=== PATIENT | male | born 1955 | race Caucasian/White ===

== ENCOUNTER → 2016-09-20 | Outpatient (CLI) | payer OTHER ==
[~2016-09-20] MED LIST: LISI-729 PO; LSN25 PO; MELO15TA4 PO; MULT-506 PO; OMEG10007 PO; PRED1SUS3 OPR; SIMV40TA2 PO
== END | disposition home or self-care (01) ==
LOC: C.LABPVFM 09:46
PROVIDERS: ATTEND Urology
DX: N40.1 Benign prostatic hyperplasia with lower urinary tract symptoms (principal)

== ENCOUNTER → 2017-02-23 | Outpatient (CLI) | payer OTHER ==
[2017-02-23 10:12] LABS: BLOOD UREA NITROGEN 17 mg/dl (7-18); BUN/CREATININE RATIO 16.9 (10-20); CARBON DIOXIDE 25 mmol/L (21-32); CHLORIDE 106 mmol/L (98-107); CHOLESTEROL 171 mg/dl (0-200); GLUCOSE 91 mg/dl (70-99); POTASSIUM 4.1 mmol/L (3.5-5.1); SODIUM 142 mmol/L (136-145); TRIGLYCERIDES 56 mg/dl (0-150); VERY LOW DENSITY LIPOPROT CALC 11 mg/dl
[2017-02-23 10:15] LABS: CALCIUM 9.2 mg/dl (8.5-10.1); CHOLESTEROL/HDL RATIO 2.6; HDL CHOLESTEROL 67 mg/dl; LDL CHOLESTEROL CALCULATED 93 mg/dl
== END | disposition home or self-care (01) ==
LOC: C.LAB 07:20
PROVIDERS: ATTEND Family Medicine
DX: E78.5 Hyperlipidemia, unspecified (principal); I42.9 Cardiomyopathy, unspecified

== ENCOUNTER 2017-02-26 16:19 | Emergency (ER) | payer OTHER ==
[~2017-02-26] VITALS: Ht 175.3 cm; Wt 88.7 kg
[~2017-02-26 16:19] MED LIST changes: -LISI-729 PO; -MELO15TA4 PO
[2017-02-26 16:25] VITALS: TEMP 36.8; Ht 175.3 cm; Wt 88.7 kg
[2017-02-26] MEDS ORDERED: LISI-729 PO (16:41)
[2017-02-26] MEDS ORDERED: MELO15TA4 PO (16:42)
--- NOTE | 2017-02-26 17:45 | DIAGNOSTIC IMAGING REPORT ---
RIGHT SHOULDER MIN 2 VIEWS ROUTINE CLINICAL HISTORY: Right shoulder pain following injury. COMPARISON: None FINDINGS: Alignment of the right shoulder is anatomic. There is no acute fracture. There is moderate AC joint arthrosis. There is mild glenohumeral joint arthrosis. IMPRESSION: 1. No acute fracture or dislocation of the right shoulder. 2. 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 Electronically signed by: Dread Brewster M.D. 02/26/2017 5:43 PM Dictated Date/Time: 02/26/2017 5:43 PM
[2017-02-26 18:10] VITALS: BP 121/72; PULSE 54; O2SAT 97
--- NOTE | 2017-02-28 08:00 | EMERGENCY ROOM VISIT NOTE ---
ED Visit Note First contact with patient: 16:29 Chief Complaint: Right shoulder pain. History of Present Illness: Mr. Blake is a 61-year-old white male who ambulates into the ED complaining of right shoulder pain. Historically patient denies any previous significant injuries or surgeries to the right shoulder. Patient reports approximately 3 hours ago he was descending a steep set of steps out of his attic. He reports while descending the steps his right shoulder gave out and he felt a popping sensation. Since that time he reports he has been having global pain in the right shoulder and he has not been able to abduct or extend at the glenoid humeral joint. Currently he describes his pain as an achy sensation. At rest he rates his discomfort 2/10 and when he attempts to move his shoulder it becomes 5/10. He has not taken any medications for pain prior to arrival at the hospital. He denies any associated symptoms including neck pain, clavicle pain, AC joint joint pain, mid to distal humerus pain, elbow pain, forearm pain, wrist pain, extremity weakness/numbness/tingling. Review of Systems: As noted above in history of present illness. 5 body systems were reviewed and found to be negative as noted above. Past Medical History: Arthritis, unspecified heart disease, dyslipidemia, hypertension, status post unspecified back and knee surgeries, appendectomy, and unspecified hernia repair. Current Medications: Medications Dose Route/Sig Max Daily Dose Days Date Category Mobic (Meloxicam) 15 Mg Tab 15 Mg PO DAILY 02/26/17 Reported Zestril (Lisinopril) 5 Mg Tab 2.5 Mg PO QAM 02/26/17 Reported Multivitamin (Multivitamins) Tab 1 Tab PO QAM 08/12/11 Reported [place]-3 (Fish Oil) 1 Ea Cap 1 Cap PO QPM 08/12/11 Reported Zocor (Simvastatin) 40 Mg Tab 40 Mg PO QPM 08/12/11 Reported Allergies to Medications: Tramadol. Social History: Patient is currently employed; he lives with his and feels safe in his home environment; he denies tobacco use; he admits to social alcohol use. Physical Examination: Vital Signs: Date Time Temp Pulse Resp B/P (MAP) Pulse Ox O2 Delivery O2 Flow Rate FiO2 02/26/17 18:10 54 6 121/72 97 Room Air 02/26/17 16:25 36.8 73 16 99/71 96 Room Air GENERAL: 61-year-old male in mild distress due to pain, nontoxic-appearing, afebrile and hemodynamically stable. Patient ambulates into the ED holding his right arm at the wrist and across to his abdomen with his right shoulder drooping lower than his left. NEUROLOGICAL: Awake, alert and oriented to person, place and time. Answering questions appropriately and following commands. Normal gait. Good hand eye coordination. SKIN: Warm, dry and pink. No soft tissue eruptions or trauma noted. BACK: No tenderness over the bony cervical and thoracic spines. RIGHT UPPER EXTREMITY: At the shoulder the humeral head appears inferior to its normal anatomical position. I do not appreciate any tenderness over the clavicle, acromioclavicular joint, scapula or humeral head. I do not appreciate any muscle tenderness of the rotator cuff muscles, trapezius muscle, pectoralis muscles, deltoid muscle and biceps muscle. Patient was not able to flex or abduct his shoulder due to discomfort. He was able to extend, abduct, internal and external rotation and when I extend and abduct his arm forearm he did have hard as I know extension and flexion. With the shoulder stabilize she had full range of motion and muscle strength in flexion and extension of the elbow, pronation and supination of the forearm, flexion, extension and radial and ulnar deviation of the wrist. Distal pulses were intact. Capillary refill is brisk. He good sensations to light touch through all dermatomes of the hand. ED Course: Patient is assessed as noted above. Patient's medications list was reviewed. Patient was offered pain medication and refused. Right Shoulder X-Rays: Were reviewed by myself and the radiologist showing no acute fractures or dislocations. Radiologist notes mild to moderate osteoarthritis of the right shoulder. Patient was placed in a shoulder immobilizer. Patient was educated about today's findings and instructed on his treatment plan ; he verbalizes understanding and agreement with this plan. Clinical Impression: Right shoulder pain. Decision-Making: Initially my differential diagnosis I considered dislocation, subluxation, acromioclavicular joint separation, rotator cuff injury, bicipital tendon injury, muscle strain and other causes. Disposition: Patient discharged home in stable condition accompanied by his ; prior to departure he was reassessed and subjectively reported he was feeling the same and rated his discomfort 2/10. Plan: Patient was encouraged to continue his current medications as prescribed by his primary care providers. Patient was encouraged use ice on the area 4-5 times a day for 20-30 minutes for pain and/or swelling. Patient was encouraged to use the immobilizer for 3-6 days or until pain free. Patient was encouraged to follow-up with family physician if no better in 4-5 days and possible referral to orthopedics. Patient was encouraged return the ED for worsening/uncontrolled pain, arm weakness/numbness/tingling or any new/concerning symptoms.
== END 2017-02-26 18:23 | disposition home or self-care (01) ==
LOC: C.EDB 16:20 → C.EDD 18:23
DX: M25.511 Pain in right shoulder (principal); M19.90 Unspecified osteoarthritis, unspecified site; I51.9 Heart disease, unspecified; E78.5 Hyperlipidemia, unspecified; I10 Essential (primary) hypertension

== ENCOUNTER → 2017-03-27 | Outpatient (CLI) | payer OTHER ==
[~2017-03-27] MED LIST changes: +LISI-729 PO; -LSN25 PO; +MELO15TA4 PO; -PRED1SUS3 OPR
== END | disposition home or self-care (01) ==
LOC: C.RDSM 12:01
PROVIDERS: ATTEND Physician Assistant
DX: S49.90XA Unspecified injury of shoulder and upper arm, unspecified arm, initial encounter (principal); X58.XXXA Exposure to other specified factors, initial encounter; M75.101 Unspecified rotator cuff tear or rupture of right shoulder, not specified as traumatic; M25.511 Pain in right shoulder

== ENCOUNTER → 2017-09-29 | Outpatient (CLI) | payer OTHER | END | disposition home or self-care (01) | LOC: C.LABPVFM 10:08 | PROVIDERS: ATTEND Urology | DX: N40.1 Benign prostatic hyperplasia with lower urinary tract symptoms (principal); R33.9 Retention of urine, unspecified ==

== ENCOUNTER 2017-12-22 22:45 | Emergency (ER) | payer OTHER ==
[~2017-12-22] VITALS: Ht 175.3 cm; Wt 89.1 kg
[~2017-12-22 22:45] MED LIST changes: +MELO-84 PO; -MELO15TA4 PO
[2017-12-22 22:57] VITALS: TEMP 36.6; Ht 175.3 cm; Wt 89.1 kg
[2017-12-22] MEDS ORDERED: CEPHALEXIN 500MG HOME PACK 1 EA BTL PO ONE (23:30)
[2017-12-22] MEDS ORDERED: CEPHALEXIN MONOHYDRATE 250 MG CAP PO ONE (23:30)
[2017-12-22] MEDS ORDERED: CEPH500C PO (23:41)
--- NOTE | 2017-12-22 23:47 | EMERGENCY ROOM VISIT NOTE ---
History Report prepared by Carla: Natasha Landis Under the Supervision of: Dr. Chanel Alcantar M.D. First contact with patient: 23:14 Chief Complaint: SWELLING TO EXTREMITY Stated Complaint: CELLULITIS History of Present Illness The patient is a 62 year old male who presents to the Emergency Room with complaints of sudden swelling to extremity starting a few hours ago. The patient states that he has been remodeling his house and has hand some splinters or cuts to his fingers. He states that he doesn't remember hitting his left elbow. He reports that he has had cellulitis in the past in his leg and thought that his arm looked similar to what his leg did. The patient denies his elbow being sore and having a fever. He notes a history of a left bundle branch block and rotator cuff surgery. Source of History: patient Onset: a few hours ago Position: elbow (left) Quality: other (swelling) Timing: other (sudden) Associated Symptoms: No fevers Note: The patient denies pain in his elbow. Review of Systems See HPI for pertinent positives & negatives. A total of 6 systems reviewed and were otherwise negative. Past Medical & Surgical Medical Problems: (1) Heart disease (2) Hx of left bundle branch block Surgical Problems: (1) History of back surgery (2) Hx of anterior cruciate ligament surgery (3) Hx of hernia repair (4) Hx of rotator cuff surgery Family History Patient reports no known family medical history. Social History Smoking Status: Former Smoker Alcohol Use: occasionally Drug Use: none Marital Status: Housing Status: lives with significant other Occupation Status: employed Current/Historical Medications Scheduled Cephalexin Monohydrate (Keflex), 500 MG PO QID Fish Oil ([place]-3), 1 CAP PO QPM Lisinopril (Zestril), 2.5 MG PO QAM Meloxicam (Mobic), 15 MG PO DAILY Multivitamin (Multivitamin), 1 TAB PO QAM Simvastatin (Zocor), 40 MG PO QPM Allergies Coded Allergies: Tramadol (Unverified Adverse Reaction, Severe, VOMITING, 12/22/17) Physical Exam Vital Signs Date Time Temp Pulse Resp B/P (MAP) Pulse Ox O2 Delivery O2 Flow Rate FiO2 12/22/17 23:55 60 20 125/76 96 12/22/17 22:57 36.6 62 18 125/74 96 Room Air Physical Exam Vital signs reviewed. General: Well-appearing, in no significant distress. Musculoskeletal: Atraumatic, no peripheral edema. Neurologic: Patient awake alert and oriented x 3 Skin: Warm, dry, no rash. Little erythema/ecchymosis to the left forearm proximally. Medical Decision & Procedures Medications Administered Medications (Trade) Dose Ordered Sig/David Route Start Time Stop Time Status Last Admin Dose Admin Cephalexin Monohydrate (Keflex 500MG Home Pack) 1 homepack NOW ONCE PO 12/22/17 23:30 12/22/17 23:39 DC 12/22/17 23:49 1 HOMEPACK Cephalexin Monohydrate (Keflex Cap) 500 mg NOW ONCE PO 12/22/17 23:30 12/22/17 23:39 DC 12/22/17 23:49 500 MG ED Course 2318: Past medical records reviewed. The patient was evaluated in room B2. A complete history and physical examination was performed. I discussed findings with him. He verbalized agreement of the treatment plan. The patient was discharged home. 2330: Ordered Keflex Cap 500 mg PO, Cephalexin Monohydrate 1 homepack PO. Medical Decision Differential diagnosis: Etiologies such as cellulitis, abscess, MRSA infection, DVT, necrotizing fasciitis, dermatitis, drug eruption, as well as others were entertained. This patient was evaluated and appeared to be in no significant distress. Physical examination reveals an area of erythema/ecchymosis to the left upper extremity. It does not cinthya however there is an area of questionable warmth near the elbow. The patient is remodeling his home. He has had cellulitis in the past with hospitalization subsequently. The patient likely suffering from a healing ecchymotic area however he will be placed on Keflex 500 mg 4 times a day for 7 days. Patient was advised of my findings. He will follow-up with his PCP this week and return to the ER for worsening symptoms or any medical concerns. Medication Reconcilliation Current Medication List: was personally reviewed by me Blood Pressure Screening Patient's blood pressure: Normal blood pressure Blood pressure disposition: Did not require urgent referral Impression Primary Impression: Cellulitis of left arm Scribe Attestation The scribe's documentation has been prepared under my direction and personally reviewed by me in its entirety. I confirm that the note above accurately reflects all work, treatment, procedures, and medical decision making performed by me. Departure Information Dispostion Home / Self-Care Prescriptions Cephalexin Monohydrate (Keflex) 500 Mg Cap 500 MG PO QID, #28 CAP Prov: Chanel Alcantar M.D. 12/22/17 Referrals Shauna Correa M.D. (PCP) Forms HOME CARE DOCUMENTATION FORM, IMPORTANT VISIT INFORMATION, WORK / SCHOOL INSTRUCTIONS Patient Instructions My [facility] Additional Instructions Diagnosis: Cellulitis of the left forearm Keflex 500 mg 4 times daily for 7 days. Wash with warm soap and water. Follow-up with your primary care physician for reevaluation this week. Return to the emergency department if erythema spreads beyond the demarcated line.
[2017-12-22 23:55] VITALS: BP 125/76; PULSE 60; O2SAT 96
== END 2017-12-22 23:55 | disposition home or self-care (01) ==
LOC: C.EDB 22:46
DX: L03.114 Cellulitis of left upper limb (principal); I51.9 Heart disease, unspecified; Z87.891 Personal history of nicotine dependence; Z79.899 Other long term (current) drug therapy; Z88.5 Allergy status to narcotic agent

== ENCOUNTER → 2018-01-29 | Outpatient (CLI) | payer OTHER ==
[~2018-01-29] MED LIST changes: +CEPH500C PO
[2018-01-29 13:26] LABS: BLOOD UREA NITROGEN 14 mg/dl (7-18); CALCIUM 8.8 mg/dl (8.5-10.1); CARBON DIOXIDE 24 mmol/L (21-32); CHOLESTEROL 164 mg/dl (0-200); CREATININE 0.93 mg/dl (0.60-1.40); GLUCOSE 91 mg/dl (70-99); LDL CHOLESTEROL CALCULATED 97 mg/dl; POTASSIUM 4.3 mmol/L (3.5-5.1); SODIUM 137 mmol/L (136-145)
== END | disposition home or self-care (01) ==
LOC: C.LABPVFM 08:15
PROVIDERS: ATTEND Family Medicine
DX: E78.5 Hyperlipidemia, unspecified (principal); I42.9 Cardiomyopathy, unspecified

== ENCOUNTER 2021-07-13 01:12 | Inpatient (IN) ==
[2021-07-13] MEDS ORDERED: SODIUM CHLORIDE 0.9% 1000ML 1,000 ML IV SCH ×2 (02:00→06:32)
[2021-07-13 02:08] LABS: Basophils # (auto) 0.02 K/uL (0-0.2); Basophils % (auto) 0.3 %; Eosinophils # (auto) 0.23 K/uL (0-0.5); Eosinophils % (auto) 2.9 %; Hematocrit (blood only) 43.3 % (42-52); Hemoglobin 14.5 g/dL (14.0-18.0); Immature Granulocytes # (auto) 0.02 K/uL (0.00-0.02); Immature Granulocytes % (auto) 0.3 %; Lymphocytes # (auto) 2.46 K/uL (1.2-3.4); Lymphocytes % (auto) 31.2 %; Mean Corpuscular Hemoglobin 32.3 pg (25-34); Mean Corpuscular Hgb Conc 33.5 g/dL (32-36); Mean Corpuscular Volume 96.4 fL (80-100); Monocytes # (auto) 0.94 K/uL (0.11-0.59); Monocytes % (auto) 11.9 %; Neutrophils # (auto) 4.22 K/uL (1.4-6.5); Neutrophils % (auto) 53.4 %; Platelet Count 177 K/uL (130-400); RDW Coefficient of Variation 14.2 % (11.5-14.5); RDW Standard Deviation 50.2 fL (36.4-46.3); Red Blood Count 4.49 M/uL (4.7-6.1); White Blood Count 7.89 K/uL (4.8-10.8)
[2021-07-13 02:16] LABS: Alanine Aminotransferase 20 U/L (12-78); Albumin Level 3.8 gm/dl (3.4-5.0); Aspartate Aminotransferase 16 U/L (15-37); BUN Creatinine Ratio 20.3 (10-20); Blood Urea Nitrogen 20 mg/dl (7-18); Calcium 9.2 mg/dl (8.5-10.1); Carbon Dioxide 27 mmol/L (21-32); Chloride 107 mmol/L (98-107); Creatinine Clr Calc Pharmacy 78.4 ml/min; Est GFR (African American) 91.4 ml/min; Est GFR (Non-African American) 78.9 ml/min; Glucose 100 mg/dl (70-99); Lipase 155 U/L (73-393); Magnesium 2.1 mg/dl (1.8-2.4); Potassium 4.3 mmol/L (3.5-5.1); Sodium 137 mmol/L (136-145)
[2021-07-13 02:26] LABS: Albumin Globulin Ratio 1.1 (0.9-2); Alkaline Phosphatase 41 U/L (45-117); Bilirubin,Total 0.6 mg/dl (0.2-1); Globulin 3.5 gm/dl (2.5-4.0); Total Protein 7.3 gm/dl (6.4-8.2); Troponin I < 0.015 ng/ml (0-0.045)
[2021-07-13 02:29] LABS: D Dimer 240 ug/L FEU (0-500); INR 0.9 (0.9-1.1); Partial Thromboplastin Ratio 0.9; Prothrombin Time 9.6 Seconds (9.0-12.0)
[2021-07-13 03:01] LABS: Appearance Urine Clear (Clear); Bilirubin Urine Negative (Negative); Blood Urine Negative (Negative); Color Urine Yellow; Glucose Urine UA Negative (Negative); Ketones Urine Negative (Negative); Leukocyte Esterase Urine Negative (Negative); Nitrite Urine Negative (Negative); Protein Urine Negative (Negative); Specific Gravity Urine 1.022 (1.000-1.030); Urobilinogen Urine Negative (Negative); pH Urine 5.5 (4.5-7.5)
[2021-07-13] MEDS ORDERED: POLYETHYLENE (MIRALAX) 17 GM PACK PO PRN (06:32)
[2021-07-13] MEDS ORDERED: ACETAMINOPHEN 325 MG TAB PO PRN (06:32)
--- NOTE | 2021-07-13 07:22 | Emergency Department Note ---
History of Present Illness General Chief complaint: Cardiac Assessment Stated complaint: PASSED OUT ON PLANE,HX OF HEART PROBLEMS,CHEST DIS Time Seen by Provider: 07/13/21 01:47 History of Present Illness Maximum Pain Intensity: 2 This is a 66-year-old male presenting to the emergency department for evaluation of syncopal episode that occurred during a flight from [facility]. The patient was on the airplane seated next to his when he had profound diaphoresis, became pale, and then had a syncopal episode. The patient was obscured to the back of the airplane where a passenger medic and nurse attended to the patient. The patient was unresponsive for some time and there was consideration being given to diversion with the chief pilot speaking to ground medical staff. The patient was placed on oxygen and after several minutes of not being able to obtain a blood pressure, the patient did begin to come to. The patient does have a history of vagal syncope, but the states this was much more profound than previous episodes. The patient felt well upon landing, and rather than looking for immediate medical care elected to get on his flight back to [place]. The patient just landed and came immediately to this facility for evaluation. The patient is reportedly usually healthy, and they were in [place] to go hiking. The patient does ride bicycle quite often. He does have a history of right bundle branch block, and there was previous consideration for possible pacer. The patient was having some chest discomfort earlier, but this seems to have improved. He rates his current discomfort a 2/10. He is not had fevers or chills. Home Medications Medication Instructions Recorded Confirmed Type lisinopril 2.5 mg tablet 2.5 mg PO DAILY 11/19/20 07/13/21 History simvastatin 40 mg tablet 40 mg PO QPM 11/19/20 07/13/21 History docusate sodium 100 mg capsule 100 mg PO DAILY 07/13/21 07/13/21 History (Stool Softener) multivitamin 1 tab PO DAILY 07/13/21 07/13/21 History omega [id number] oil 1,200 mg 1 cap PO DAILY 07/13/21 07/13/21 History (144 mg-216 mg) capsule (Fish Oil) Allergies Allergy/AdvReac Type Severity Reaction Status Date / Time tramadol AdvReac Severe VOMITING Verified 07/13/21 02:16 Past Med/Surg History Medical History Cardiomyopathy Cellulitis Diarrhea Dyslipidemia Hx of left bundle branch block Insomnia Knee pain Nasal polyps Skin tag Sleep disturbances Surgical History History of back surgery History of laparoscopic appendectomy Hx of anterior cruciate ligament surgery Hx of cataract surgery Hx of hernia repair Hx of rotator cuff surgery Family History Other Epilepsy Social History Smoking Status: Former smoker Tobacco Type: Cigarettes Hx Alcohol Use: Yes Alcohol type: hard liquor Hx Substance Use: No Preferred Language: Estonian Communication Ability: Effective Manager Medical Writing Required: No Beliefs That Will Affect Care: Jain marital status: Current Living Situation: Spouse How many Children do You have: 1 Other Information That Helps Us Care for You: No Feels Safe at Home: Yes Safety Concerns: Feels Safe At This Time Assistive Devices: Glasses Review of Systems A total of 10 systems reviewed and were otherwise negative Physical Exam Vital Signs Vital Signs - 24 hr 07/13/21 01:21 07/13/21 01:38 07/13/21 02:00 Temperature 36.1 C L Temperature Source Temporal Artery Scan Pulse Rate 57 L 49 L 50 L Pulse Rate [Finger] Pulse Rhythm Respiratory Rate 19 14 13 Respiratory Effort / Characteristics Non-Labored Respiratory Depth Normal Respiratory Pattern Regular Blood Pressure 123/81 126/72 Blood Pressure [Right Arm] Blood Pressure Mean 95 90 Blood Pressure Mean [Right Arm] Pulse Oximetry 96 96 96 Oxygen Delivery Method Room Air Sepsis Recent Fever Within 48 Hours No Sepsis New/Unexplained Change in Mental Status N/A Sepsis Action Taken by Nursing No Action Required 07/13/21 02:08 07/13/21 02:11 07/13/21 02:30 Temperature Temperature Source Pulse Rate 56 L 51 L Pulse Rate [Finger] 56 L Pulse Rhythm Regular Respiratory Rate 12 15 Respiratory Effort / Characteristics Non-Labored Respiratory Depth Respiratory Pattern Regular Blood Pressure 137/68 Blood Pressure [Right Arm] 126/72 Blood Pressure Mean 91 Blood Pressure Mean [Right Arm] 90 Pulse Oximetry 97 96 98 Oxygen Delivery Method Room Air Room Air Sepsis Recent Fever Within 48 Hours Sepsis New/Unexplained Change in Mental Status Sepsis Action Taken by Nursing 07/13/21 03:00 07/13/21 03:30 07/13/21 03:55 Temperature Temperature Source Pulse Rate 52 L 53 L Pulse Rate [Finger] 38 L Pulse Rhythm Respiratory Rate 17 19 Respiratory Effort / Characteristics Respiratory Depth Respiratory Pattern Blood Pressure 121/70 Blood Pressure [Right Arm] Blood Pressure Mean 87 Blood Pressure Mean [Right Arm] Pulse Oximetry 97 96 Oxygen Delivery Method Sepsis Recent Fever Within 48 Hours Sepsis New/Unexplained Change in Mental Status Sepsis Action Taken by Nursing 07/13/21 04:00 07/13/21 04:30 07/13/21 05:00 Temperature Temperature Source Pulse Rate 53 L 60 50 L Pulse Rate [Finger] Pulse Rhythm Respiratory Rate 15 14 13 Respiratory Effort / Characteristics Respiratory Depth Respiratory Pattern Blood Pressure 119/59 L 122/67 Blood Pressure [Right Arm] Blood Pressure Mean 79 85 Blood Pressure Mean [Right Arm] Pulse Oximetry 96 97 98 Oxygen Delivery Method Sepsis Recent Fever Within 48 Hours Sepsis New/Unexplained Change in Mental Status Sepsis Action Taken by Nursing 07/13/21 05:30 07/13/21 06:00 Temperature Temperature Source Pulse Rate 50 L 58 L Pulse Rate [Finger] Pulse Rhythm Respiratory Rate 12 17 Respiratory Effort / Characteristics Respiratory Depth Respiratory Pattern Blood Pressure 118/63 122/70 Blood Pressure [Right Arm] Blood Pressure Mean 81 87 Blood Pressure Mean [Right Arm] Pulse Oximetry 96 96 Oxygen Delivery Method Sepsis Recent Fever Within 48 Hours Sepsis New/Unexplained Change in Mental Status Sepsis Action Taken by Nursing VITALS: Vitals are noted on the nurse's note and reviewed by myself. Vital signs stable. GENERAL: Well-developed, well-nourished, white male, who is in no acute distress and resting comfortably. Patient is cooperative with the examination. HEAD: Normocephalic atraumatic. HEART: Bradycardic rate with regular rhythm LUNGS: Clear to auscultation bilaterally without wheezes, rales or rhonchi. No retractions or accessory muscle use. ABDOMEN: Positive normal bowel sounds x 4. Soft, nontender, without masses or organomegaly. No guarding or rebound tenderness. MUSCULOSKELETAL: No muscle atrophy, erythema, or edema noted. Full range of motion in all extremities. Course Administered Medications Docusate Sodium (Docusate Sodium 100 Mg Cap) 100 mg PO DAILY LENNOX Stop: 08/12/21 08:59 Last Admin: 07/13/21 09:51 Dose: 100 mg Documented by: [id number] Enoxaparin Sodium (Enoxaparin Inj 40 Mg/0.4 Ml Syr) 40 mg SQ Q24H LENNOX Stop: 08/12/21 08:59 Last Admin: 07/13/21 10:40 Dose: Not Given Documented by: [id number] Lisinopril (Lisinopril 2.5 Mg Tab) 2.5 mg PO DAILY LENNOX Stop: 08/12/21 08:59 Last Admin: 07/13/21 09:51 Dose: 2.5 mg Documented by: [id number] Multivitamins (Multivitamin Tab) 1 tab PO QAM LENNOX Stop: 08/12/21 08:59 Last Admin: 07/13/21 09:52 Dose: 1 tab Documented by: [id number] Simvastatin (Simvastatin 40 Mg Tab) 40 mg PO QPM LENNOX Stop: 08/12/21 20:59 Last Admin: 07/13/21 20:40 Dose: 40 mg Documented by: [id number] Discontinued Medications Sodium Chloride (Nss 1000ml) 1,000 mls @ 999 mls/hr IV .[id number] LENNOX Stop: 07/13/21 03:00 Last Infusion: 07/13/21 03:01 Dose: 0 mls/hr Documented by: [id number] Admin: 07/13/21 02:06 Dose: 999 mls/hr Documented by: [id number] Sodium Chloride (Nss 1000ml) 1,000 mls @ 80 mls/hr IV .[id number] LENNOX Stop: 07/13/21 19:01 Last Infusion: 07/13/21 21:29 Dose: 0 mls/hr Documented by: [id number] Admin: 07/13/21 07:30 Dose: 80 mls/hr Documented by: [id number] Medical Decision Making Differential Diagnosis Differential diagnosis includes, but is not limited to: Myocardial infarction, dysrhythmia, pericarditis, pneumothorax, aortic aneurysm/dissection, DVT/PE, anxiety, GERD, PUD, electrolyte imbalance, thyroid disorder, pneumonia, bron chitis, pancreatitis, and others Laboratory Data Result diagrams: 07/13/21 07:39 07/13/21 07:39 Lab Results 07/13/21 07/13/21 07/13/21 Range/Units 01:30 01:30 01:30 WBC 7.89 (4.8-10.8) K/uL RBC 4.49 L (4.7-6.1) M/uL Hgb 14.5 (14.0-18.0) g/dL Hct 43.3 (42-52) % MCV 96.4 (80-100) fL MCH 32.3 (25-34) pg MCHC 33.5 (32-36) g/dL RDW Std Deviation 50.2 H (36.4-46.3) fL RDW Coeff of Maribel 14.2 (11.5-14.5) % Plt Count 177 (130-400) K/uL MPV 11.0 H (7.4-10.4) fL Immature Gran % (Auto) 0.3 % Neut % (Auto) 53.4 % Lymph % (Auto) 31.2 % Fannin % (Auto) 11.9 % Eos % (Auto) 2.9 % Baso % (Auto) 0.3 % Neut # (Auto) 4.22 (1.4-6.5) K/uL Lymph # (Auto) 2.46 (1.2-3.4) K/uL Fannin # (Auto) 0.94 H (0.11-0.59) K/uL Eos # (Auto) 0.23 (0-0.5) K/uL Baso # (Auto) 0.02 (0-0.2) K/uL Immature Gran # (Auto) 0.02 (0.00-0.02) K/uL PT 9.6 (9.0-12.0) Seconds INR 0.9 (0.9-1.1) APTT 24.0 (21.0-31.0) Seconds PTT Ratio 0.9 D-Dimer 240 (0-500) ug/L FEU Sodium 137 (136-145) mmol/L Potassium 4.3 (3.5-5.1) mmol/L Chloride 107 (98-107) mmol/L Carbon Dioxide 27 (21-32) mmol/L Anion Gap 3.0 (3-11) BUN 20 H (7-18) mg/dl Creatinine 0.98 (0.6-1.4) mg/dl Est Cr Clr Drug Dosing 78.4 ml/min Est GFR ( Amer) 91.4 ml/min Est GFR (Non-Af Amer) 78.9 ml/min BUN/Creatinine Ratio 20.3 H (10-20) Glucose 100 H (70-99) mg/dl Calcium 9.2 (8.5-10.1) mg/dl Magnesium 2.1 (1.8-2.4) mg/dl Total Bilirubin 0.6 (0.2-1) mg/dl AST 16 (15-37) U/L ALT 20 (12-78) U/L Alkaline Phosphatase 41 L (45-117) U/L Troponin I < 0.015 (0-0.045) ng/ml Total Protein 7.3 (6.4-8.2) gm/dl Albumin 3.8 (3.4-5.0) gm/dl Globulin 3.5 (2.5-4.0) gm/dl Albumin/Globulin Ratio 1.1 (0.9-2) Lipase 155 (73-393) U/L TSH 3.300 (0.300-4.500) uIu/ml Urine Color Urine Appearance (Clear) Urine pH (4.5-7.5) Ur Specific Elizabeth (1.000-1.030) Urine Protein (Negative) Urine Glucose (UA) (Negative) Urine Ketones (Negative) Urine Blood (Negative) Urine Nitrite (Negative) Urine Bilirubin (Negative) Urine Urobilinogen (Negative) Ur Leukocyte Esterase (Negative) COVID-19 Eval Order SARS-CoV-2 (PCR) (Negative) 07/13/21 07/13/21 07/13/21 Range/Units 02:13 02:13 02:53 WBC (4.8-10.8) K/uL RBC (4.7-6.1) M/uL Hgb (14.0-18.0) g/dL Hct (42-52) % MCV (80-100) fL MCH (25-34) pg MCHC (32-36) g/dL RDW Std Deviation (36.4-46.3) fL RDW Coeff of Maribel (11.5-14.5) % Plt Count (130-400) K/uL MPV (7.4-10.4) fL Immature Gran % (Auto) % Neut % (Auto) % Lymph % (Auto) % Fannin % (Auto) % Eos % (Auto) % Baso % (Auto) % Neut # (Auto) (1.4-6.5) K/uL Lymph # (Auto) (1.2-3.4) K/uL Fannin # (Auto) (0.11-0.59) K/uL Eos # (Auto) (0-0.5) K/uL Baso # (Auto) (0-0.2) K/uL Immature Gran # (Auto) (0.00-0.02) K/uL PT (9.0-12.0) Seconds INR (0.9-1.1) APTT (21.0-31.0) Seconds PTT Ratio D-Dimer (0-500) ug/L FEU Sodium (136-145) mmol/L Potassium (3.5-5.1) mmol/L Chloride (98-107) mmol/L Carbon Dioxide (21-32) mmol/L Anion Gap (3-11) BUN (7-18) mg/dl Creatinine (0.6-1.4) mg/dl Est Cr Clr Drug Dosing ml/min Est GFR ( Amer) ml/min Est GFR (Non-Af Amer) ml/min BUN/Creatinine Ratio (10-20) Glucose (70-99) mg/dl Calcium (8.5-10.1) mg/dl Magnesium (1.8-2.4) mg/dl Total Bilirubin (0.2-1) mg/dl AST (15-37) U/L ALT (12-78) U/L Alkaline Phosphatase (45-117) U/L Troponin I (0-0.045) ng/ml Total Protein (6.4-8.2) gm/dl Albumin (3.4-5.0) gm/dl Globulin (2.5-4.0) gm/dl Albumin/Globulin Ratio (0.9-2) Lipase (73-393) U/L TSH (0.300-4.500) uIu/ml Urine Color Yellow Urine Appearance Clear (Clear) Urine pH 5.5 (4.5-7.5) Ur Specific Elizabeth 1.022 (1.000-1.030) Urine Protein Negative (Negative) Urine Glucose (UA) Negative (Negative) Urine Ketones Negative (Negative) Urine Blood Negative (Negative) Urine Nitrite Negative (Negative) Urine Bilirubin Negative (Negative) Urine Urobilinogen Negative (Negative) Ur Leukocyte Esterase Negative (Negative) COVID-19 Eval Order Covid19 at [facility] SARS-CoV-2 (PCR) NEGATIVE (Negative) Imaging Data Radiologist's Impression: Chest X-Ray 07/13/21 01:58 XR chest 1V portable HISTORY: Left-sided chest pain COMPARISON: Chest 10/21/2018. FINDINGS: The lungs are clear. Cardiac silhouette is normal in size. No pleural effusions. No pneumothorax. Advanced degenerative changes within the shoulders. IMPRESSION: No acute process. ACT 112: Negative or not required by law. Electronically signed by: Jese May M.D. 07/13/2021 8:05 AM ECG Data Attestation: I personally reviewed and interpreted this ECG as follows: Indication: + syncope Additional Comments: Sinus bradycardia @48 bpm Left bundle branch block Abnormal ECG When compared with ECG of 12-AUG-2011 23:52, No significant change was found MDM Narrative Physical exam and history were performed. Nursing notes, EMR, and Medication List were personally reviewed. Patient appears to have had a syncopal episode on an airplane today. Upon arrival he is bradycardic but overall does not appear toxic. IV access was established and labs were obtained. The patient was gently hydrated with normal saline. An order was placed for continuous cardiac monitoring. The monitor shows a rate of 38 with bradycardic rhythm. The patient's blood work is as above and was reviewed. He does not have a significantly elevated white blood cell count, gross anemia, bandemia, or significant electrolyte imbalance. Lipase and transaminases are not diagnostic. TSH shows euthyroid state. Urine is without evidence of infection. Covid and Lyme are both negative. Chest x-ray was reviewed by myself and radiology showing no acute process. Overall the patient does not appear well for discharge home. He is bradycardic and did have a syncopal episode tonight. The patient additionally has a bundle branch block. [facility] the patient here in the ER. Please see their dictation for further patient course, plan, disposition. The chart was completed utilizing [employer] Voice Recognition Software. Grammatical errors, random word insertions, pronoun errors, and incomplete sentences are an occasional consequence of this system due to software limitations, ambient noise, and hardware issues. Any formal questions or concerns about the content, text, or information contained within the body of this dictation should be directly addressed to the provider for clarification. . Impression & Plan Syncope and collapse, Sinus bradycardia, Left bundle branch block Discharge Plan Visit Data Chief Complaint: Cardiac Assessment Stated Complaint: PASSED OUT ON PLANE,HX OF HEART PROBLEMS,CHEST DIS ED Provider: Vidya Cantu ED Midlevel Provider: Steve Barrera Discharge Problem: Syncope and collapse, Sinus bradycardia, Left bundle branch block Patient Disposition: Admitted As Inpatient Discharge Instructions Interventions: ED Discharge Assessment Last Done: 07/13/21 06:19
[2021-07-13 07:47] LABS: Basophils # (auto) 0.02 K/uL (0-0.2); Basophils % (auto) 0.3 %; Eosinophils # (auto) 0.35 K/uL (0-0.5); Eosinophils % (auto) 4.5 %; Hematocrit (blood only) 40.8 % (42-52); Hemoglobin 13.6 g/dL (14.0-18.0); Immature Granulocytes # (auto) 0.01 K/uL (0.00-0.02); Immature Granulocytes % (auto) 0.1 %; Lymphocytes # (auto) 2.86 K/uL (1.2-3.4); Lymphocytes % (auto) 36.5 %; Mean Corpuscular Hemoglobin 32.1 pg (25-34); Mean Corpuscular Hgb Conc 33.3 g/dL (32-36); Mean Corpuscular Volume 96.2 fL (80-100); Mean Platelet Volume 10.3 fL (7.4-10.4); Monocytes # (auto) 0.86 K/uL (0.11-0.59); Neutrophils # (auto) 3.74 K/uL (1.4-6.5); Neutrophils % (auto) 47.6 %; Platelet Count 158 K/uL (130-400); RDW Coefficient of Variation 14.2 % (11.5-14.5); RDW Standard Deviation 50.6 fL (36.4-46.3); Red Blood Count 4.24 M/uL (4.7-6.1); White Blood Count 7.84 K/uL (4.8-10.8)
[2021-07-13 08:07] LABS: BUN Creatinine Ratio 17.6 (10-20); Blood Urea Nitrogen 15 mg/dl (7-18); Calcium 8.8 mg/dl (8.5-10.1); Carbon Dioxide 25 mmol/L (21-32); Chloride 110 mmol/L (98-107); Creatinine Clr Calc Pharmacy 91.5 ml/min; Est GFR (African American) 104.3 ml/min; Glucose 100 mg/dl (70-99); Potassium 3.9 mmol/L (3.5-5.1); Sodium 140 mmol/L (136-145)
--- NOTE | 2021-07-13 08:07 | XRay Report ---
XR chest 1V portable HISTORY: Left-sided chest pain COMPARISON: Chest 10/21/2018. FINDINGS: The lungs are clear. Cardiac silhouette is normal in size. No pleural effusions. No pneumot horax. Advanced degenerative changes within the shoulders. IMPRESSION: No acute process. ACT 112: Negative or not required by law. Electronically signed by: Jese May M.D. 07/13/2021 8:05 AM
[2021-07-13 08:11] LABS: Troponin I < 0.015 ng/ml (0-0.045)
--- NOTE | 2021-07-13 08:11 | History and Physical Report ---
DATE OF ADMISSION: 07/13/2021. CHIEF COMPLAINT: Syncope. HISTORY OF PRESENT ILLNESS: This 66-year-old male with past medical history significant for hyperlipidemia, idiopathic cardiomyopathy, left bundle-branch block, chronic premature beats, history of sinus bradycardia, osteoarthritis of shoulder presents with syncope. The patient was in [place], he was hiking for 2 weeks. He did fine, no complaints. He also bikes; when he bikes, he bikes for 16 miles and when the weather is good he also goes to the gym, no problems. On the flight back to [place] from [place] on the way, he was watching iPad, suddenly he was feeling hot and sweaty and his noticed that he is sliding down from a chair and his eyes rolled up and looked pale and she called medical emergency and there were routeman in the flight, they took him to the back and communicated with the ground doctor and almost thought to divert the plane, but the patient started to wake up and his initial symptoms have improved, then he came back and sat in his chair. He was in [facility] airport for 2 hours, he wanted to come [place] and he took the flight to [place] and came directly to the ER. He has some slight dizziness and some slight chest discomfort, but no other complaints. No nausea, no vomiting, no diarrhea, no fevers, no cough, no headache, no blurred visions, no earache, no runny nose, no sore throat. No nausea, no vomiting. Appetite is okay. They were told in [place], when he was hiking, people are getting West Nile disease. The patient had vaccine for COVID with [facility] in September and October, but May, he had COVID positive, on 05/28/2021, he received monoclonal antibodies. Today, his COVID test is negative.Denies any tick bites. ALLERGIES: POLLEN. PAST MEDICAL HISTORY: As mentioned above. PAST SURGICAL HISTORY: Colonoscopy, single lumbar laminectomy, appendectomy, repair of inguinal hernia, repair of knee cartilage, repair of nasal septum. MEDICATIONS: The patient is on lisinopril 2.5 mg p.o. daily, simvastatin 40 mg p.o. at bedtime, Colace 100 mg p.o. daily, multivitamin one tablet p.o. daily, fish oil 1 capsule p.o. daily. FAMILY HISTORY: Significant for mother had peripheral vascular disease, father has peripheral vascular disease. SOCIAL HISTORY: . Quit smoking in 1979. Alcohol 2-4 times per month. No drug use. REVIEW OF SYSTEMS: As per HPI. Rest of review of systems is negative. PHYSICAL EXAMINATION: GENERAL: The patient is of moderate build, not in acute distress. VITAL SIGNS: Temperature 36.1, pulse 58, respiratory rate 17, blood pressure 122/70, oxygen 96% on room air. HEENT: Pupils equal, round and reactive to light. Oral mucosa moist. NECK: No JVD or neck masses. CARDIOVASCULAR: S1 and S2 heard. Regular rate and rhythm. No murmur, no gallop. RESPIRATORY SYSTEM: Normal AP diameter. No accessory muscle use. No wheezing, no crackles. ABDOMEN: Soft, bowel sounds present, nontender, no distention. CENTRAL NERVOUS SYSTEM: Cranial nerves II-XII grossly intact, nonfocal. EXTREMITIES: No edema, no erythema. LABORATORY DATA: WBC 7.8, hemoglobin 14.5, hematocrit 43.3, platelets 177. PT 10.6, INR 0.9, APTT 24. D-dimer 240. Sodium 137, potassium 4.3, chloride 107, bicarbonate 27, BUN 20, creatinine 0.9, serum glucose 100, calcium 9.2, magnesium 2.1, total bilirubin 0.6, AST 16, ALT 20, alkaline phosphatase 41. Troponin I less than 0.015. Lipase 155. TSH 3.3. Urinalysis negative. SARS-CoV-2 PCR negative. IMAGING DATA: Chest x-ray, no acute findings. EKG: Sinus bradycardia, rate of 48, left bundle-branch block, no significant change was found. ASSESSMENT AND PLAN: This 66-year-old male presents with syncope, also found to have bradycardia. 1. Syncope, while [place] [facility] ER he is also bradycardic. He has some chest discomfort. EKG shows no acute findings except for sinus bradycardia. Troponin is negative. The patient denies any tick bites. Otherwise, he is very active. Patient has idiopathic cardiomyopathy, EF of 45-50%. Follows with a credit balance specialist, and has been stable, has chronic left bundle-branch block . His cardiac catheterization done in 12/2018 showed mild luminal irregularities without obstructive coronary disease. We will monitor in tele floor follow orthostatics. Follow echocardiogram. Keep him n.p.o. until seen by Cardiology. Further recommendations as per Cardiology. 2. History of hypertension: Continue lisinopril. Monitor the blood pressure. 3. Hyperlipidemia: Continue statin. 4. Deep venous thrombosis prophylaxis: Lovenox. DISPOSITION: Closely monitor in the tele floor. Level I full code. Expect to discharge home and follow with family doctor. Job ID: [id number] [facility]
[2021-07-13 08:47] LABS: Lyme Ab IgG w/WB Rflx Negative (Negative); Lyme Ab IgM w/WB Rflx Negative (Negative)
[2021-07-13] MEDS: lisinopril 2.5 MG TAB PO SCH (09:51)
[2021-07-13] MEDS: DOCUSATE SODIUM 100 MG CAP PO SCH (09:51)
[2021-07-13] MEDS: MULTIVITAMIN TAB PO SCH (09:52)
[2021-07-13] MEDS: ENOXAPARIN INJ 40 MG/0.4 ML SYR SQ SCH (10:40)
--- NOTE | 2021-07-13 11:12 | Electrocardiogram Report ---
Test Reason : Blood Pressure : / mmHG Vent. Rate : 048 BPM Atrial Rate : 048 BPM P-R Int : 168 ms QRS Dur : 164 ms QT Int : 494 ms P-R-T Axes : 067 -05 238 degrees QTc Int : 441 ms Sinus bradycardia Left bundle branch block Abnormal ECG When compared with ECG of 12-AUG-2011 23:52, No significant change was found Confirmed by Chucky Hernandez ([id number]) on 07/13/2021 11:12:00 AM Referred By: REFERRED SELF Confirmed By:Kt Hernandez
--- NOTE | 2021-07-13 11:55 | Hospitalist Progress Note ---
Date of Service July 13, 2021 Assessment & Plan (1) Syncope and collapse: (2) Sinus bradycardia: (3) Left bundle branch block: (4) Non-ischemic cardiomyopathy: Plan: 66-year-old male presents with syncope, also found to have bradycardia. 1. Syncope, while flying back from [place] to [facility]. - in the ER pt also bradycardic. - EKG shows no acute findings except for sinus bradycardia, chronic LBBB. - Troponin is negative. - The patient denies any tick bites. - Otherwise, he is very active. - Patient has idiopathic cardiomyopathy, EF of 45-50%. 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 His cardiac catheterization done in 12/2018 showed mild luminal irregularities without obstructive coronary disease. We will monitor in tele floor follow orthostatics. Echocardiogram obtained -sinus bradycardia was present during the study. There is mild concentric LVH. Septal motion is abnormal consistent with LBBB. Mild diffuse LV hypokinesis is otherwise present. LV systolic function is moderately reduced. LVEF 30 to 35%. Grade 1 diastolic dysfunction. There is no significant valvular pathology. Cardiology consulted - Given findings of nonexertional syncope, with left bundle branch block, wide QRS duration of 160 ms, and worsening left ventricular systolic dysfunction, think it is most appropriate to consider proceeding with a cardiac resynchronization therapy capable pacemaker defibrillator at this time. Patient is agreeable. He is to remain in the hospital, anticipate that the procedure will take place early next week pending EP input and scheduling. 2. History of hypertension: Continue lisinopril. Monitor the blood pressure. 3. Hyperlipidemia: Continue statin. DVT prophylaxis: Lovenox. DISPOSITION: Closely monitor on tele floor. Code: Full code Admission and Anticipated Discharge Date Admission Date: July 13, 2021 Subjective Patient seen in follow-up of syncopal episode, chronic LBBB, bradycardia Currently lying in bed, in no acute distress, patient's at the bedside Patient currently denies any chest pain, palpitations, shortness of breath, lightheadedness or dizziness Also denies any fevers, chills, nausea, abdominal pain Most of the history is provided by the , patient is resting Review of Systems Review of Systems: All systems reviewed & are unremarkable except as noted in Subjective Physical Exam Physical Exam: GENERAL: The patient is of moderate build, not in acute distress. HEENT: NC/AT, EOMI, PERRL, Oral mucosa moist. NECK: No JVD or neck masses. CARDIOVASCULAR: S1 and S2 heard. Regular rate and rhythm. No murmur, no gallop. RESPIRATORY SYSTEM: Normal AP diameter. No accessory muscle use. No wheezing, no crackles. ABDOMEN: Soft, bowel sounds present, nontender, no distention. NEURO:Alert and oriented, answers questions appropriately, no facial asymmetry, speech fluent, moves extremities EXTREMITIES: No edema, no erythema. Results & Data Results & Data ([facility]) Vital Signs (Past 12 Hours) Vital Signs Temp Pulse Pulse Resp BP BP Pulse Ox 07/13/21 08:30 36.8 C 57 L 18 116/66 96 07/13/21 06:45 36.6 C 57 L 16 129/73 94 07/13/21 06:00 58 L 17 122/70 96 07/13/21 05:30 50 L 12 118/63 96 07/13/21 05:00 50 L 13 122/67 98 07/13/21 04:30 60 14 97 07/13/21 04:00 53 L 15 119/59 L 96 07/13/21 03:55 38 L 07/13/21 03:30 53 L 19 121/70 96 07/13/21 03:00 52 L 17 97 07/13/21 02:30 51 L 15 137/68 98 07/13/21 02:11 96 07/13/21 02:08 56 L 56 L 12 126/72 97 07/13/21 02:00 50 L 13 126/72 96 07/13/21 01:38 49 L 14 96 07/13/21 01:21 36.1 C L 57 L 19 123/81 96 Laboratory Results 07/13/21 07/13/21 07/13/21 Range/Units 07:39 07:39 07:39 WBC 7.84 (4.8-10.8) K/uL RBC 4.24 L (4.7-6.1) M/uL Hgb 13.6 L (14.0-18.0) g/dL Hct 40.8 L (42-52) % MCV 96.2 (80-100) fL MCH 32.1 (25-34) pg MCHC 33.3 (32-36) g/dL RDW Std Deviation 50.6 H (36.4-46.3) fL RDW Coeff of Maribel 14.2 (11.5-14.5) % Plt Count 158 (130-400) K/uL MPV 10.3 (7.4-10.4) fL Immature Gran % (Auto) 0.1 % Neut % (Auto) 47.6 % Lymph % (Auto) 36.5 % [place] % (Auto) 11.0 % Eos % (Auto) 4.5 % Baso % (Auto) 0.3 % Neut # (Auto) 3.74 (1.4-6.5) K/uL Lymph # (Auto) 2.86 (1.2-3.4) K/uL [place] # (Auto) 0.86 H (0.11-0.59) K/uL Eos # (Auto) 0.35 (0-0.5) K/uL Baso # (Auto) 0.02 (0-0.2) K/uL Immature Gran # (Auto) 0.01 (0.00-0.02) K/uL PT (9.0-12.0) Seconds INR (0.9-1.1) APTT (21.0-31.0) Seconds PTT Ratio D-Dimer (0-500) ug/L FEU Sodium 140 (136-145) mmol/L Potassium 3.9 (3.5-5.1) mmol/L Chloride 110 H (98-107) mmol/L Carbon Dioxide 25 (21-32) mmol/L Anion Gap 5.0 (3-11) BUN 15 (7-18) mg/dl Creatinine 0.84 (0.6-1.4) mg/dl Est Cr Clr Drug Dosing 91.5 ml/min Est GFR ( Amer) 104.3 ml/min Est GFR (Non-Af Amer) 90.0 ml/min BUN/Creatinine Ratio 17.6 (10-20) Glucose 100 H (70-99) mg/dl Calcium 8.8 (8.5-10.1) mg/dl Magnesium 2.0 (1.8-2.4) mg/dl Total Bilirubin (0.2-1) mg/dl AST (15-37) U/L ALT (12-78) U/L Alkaline Phosphatase (45-117) U/L Troponin I < 0.015 (0-0.045) ng/ml Total Protein (6.4-8.2) gm/dl Albumin (3.4-5.0) gm/dl Globulin (2.5-4.0) gm/dl Albumin/Globulin Ratio (0.9-2) Lipase (73-393) U/L TSH (0.300-4.500) uIu/ml Urine Color Urine Appearance (Clear) Urine pH (4.5-7.5) Ur Specific [place] (1.000-1.030) Urine Protein (Negative) Urine Glucose (UA) (Negative) Urine Ketones (Negative) Urine Blood (Negative) Urine Nitrite (Negative) Urine Bilirubin (Negative) Urine Urobilinogen (Negative) Ur Leukocyte Esterase (Negative) Lyme Disease IgG Ab Negative (Negative) Lyme Disease IgM Ab Negative (Negative) COVID-19 Eval Order SARS-CoV-2 (PCR) (Negative) 07/13/21 07/13/21 07/13/21 Range/Units 02:53 02:13 02:13 WBC (4.8-10.8) K/uL RBC (4.7-6.1) M/uL Hgb (14.0-18.0) g/dL Hct (42-52) % MCV (80-100) fL MCH (25-34) pg MCHC (32-36) g/dL RDW Std Deviation (36.4-46.3) fL RDW Coeff of Maribel (11.5-14.5) % Plt Count (130-400) K/uL MPV (7.4-10.4) fL Immature Gran % (Auto) % Neut % (Auto) % Lymph % (Auto) % [place] % (Auto) % Eos % (Auto) % Baso % (Auto) % Neut # (Auto) (1.4-6.5) K/uL Lymph # (Auto) (1.2-3.4) K/uL [place] # (Auto) (0.11-0.59) K/uL Eos # (Auto) (0-0.5) K/uL Baso # (Auto) (0-0.2) K/uL Immature Gran # (Auto) (0.00-0.02) K/uL PT (9.0-12.0) Seconds INR (0.9-1.1) APTT (21.0-31.0) Seconds PTT Ratio D-Dimer (0-500) ug/L FEU Sodium (136-145) mmol/L Potassium (3.5-5.1) mmol/L Chloride (98-107) mmol/L Carbon Dioxide (21-32) mmol/L Anion Gap (3-11) BUN (7-18) mg/dl Creatinine (0.6-1.4) mg/dl Est Cr Clr Drug Dosing ml/min Est GFR ( Amer) ml/min Est GFR (Non-Af Amer) ml/min BUN/Creatinine Ratio (10-20) Glucose (70-99) mg/dl Calcium (8.5-10.1) mg/dl Magnesium (1.8-2.4) mg/dl Total Bilirubin (0.2-1) mg/dl AST (15-37) U/L ALT (12-78) U/L Alkaline Phosphatase (45-117) U/L Troponin I (0-0.045) ng/ml Total Protein (6.4-8.2) gm/dl Albumin (3.4-5.0) gm/dl Globulin (2.5-4.0) gm/dl Albumin/Globulin Ratio (0.9-2) Lipase (73-393) U/L TSH (0.300-4.500) uIu/ml Urine Color Yellow Urine Appearance Clear (Clear) Urine pH 5.5 (4.5-7.5) Ur Specific [place] 1.022 (1.000-1.030) Urine Protein Negative (Negative) Urine Glucose (UA) Negative (Negative) Urine Ketones Negative (Negative) Urine Blood Negative (Negative) Urine Nitrite Negative (Negative) Urine Bilirubin Negative (Negative) Urine Urobilinogen Negative (Negative) Ur Leukocyte Esterase Negative (Negative) Lyme Disease IgG Ab (Negative) Lyme Disease IgM Ab (Negative) COVID-19 Eval Order Covid19 at [facility] SARS-CoV-2 (PCR) NEGATIVE (Negative) 07/13/21 07/13/21 07/13/21 Range/Units 01:30 01:30 01:30 WBC 7.89 (4.8-10.8) K/uL RBC 4.49 L (4.7-6.1) M/uL Hgb 14.5 (14.0-18.0) g/dL Hct 43.3 (42-52) % MCV 96.4 (80-100) fL MCH 32.3 (25-34) pg MCHC 33.5 (32-36) g/dL RDW Std Deviation 50.2 H (36.4-46.3) fL RDW Coeff of Maribel 14.2 (11.5-14.5) % Plt Count 177 (130-400) K/uL MPV 11.0 H (7.4-10.4) fL Immature Gran % (Auto) 0.3 % Neut % (Auto) 53.4 % Lymph % (Auto) 31.2 % [place] % (Auto) 11.9 % Eos % (Auto) 2.9 % Baso % (Auto) 0.3 % Neut # (Auto) 4.22 (1.4-6.5) K/uL Lymph # (Auto) 2.46 (1.2-3.4) K/uL [place] # (Auto) 0.94 H (0.11-0.59) K/uL Eos # (Auto) 0.23 (0-0.5) K/uL Baso # (Auto) 0.02 (0-0.2) K/uL Immature Gran # (Auto) 0.02 (0.00-0.02) K/uL PT 9.6 (9.0-12.0) Seconds INR 0.9 (0.9-1.1) APTT 24.0 (21.0-31.0) Seconds PTT Ratio 0.9 D-Dimer 240 (0-500) ug/L FEU Sodium 137 (136-145) mmol/L Potassium 4.3 (3.5-5.1) mmol/L Chloride 107 (98-107) mmol/L Carbon Dioxide 27 (21-32) mmol/L Anion Gap 3.0 (3-11) BUN 20 H (7-18) mg/dl Creatinine 0.98 (0.6-1.4) mg/dl Est Cr Clr Drug Dosing 78.4 ml/min Est GFR ( Amer) 91.4 ml/min Est GFR (Non-Af Amer) 78.9 ml/min BUN/Creatinine Ratio 20.3 H (10-20) Glucose 100 H (70-99) mg/dl Calcium 9.2 (8.5-10.1) mg/dl Magnesium 2.1 (1.8-2.4) mg/dl Total Bilirubin 0.6 (0.2-1) mg/dl AST 16 (15-37) U/L ALT 20 (12-78) U/L Alkaline Phosphatase 41 L (45-117) U/L Troponin I < 0.015 (0-0.045) ng/ml Total Protein 7.3 (6.4-8.2) gm/dl Albumin 3.8 (3.4-5.0) gm/dl Globulin 3.5 (2.5-4.0) gm/dl Albumin/Globulin Ratio 1.1 (0.9-2) Lipase 155 (73-393) U/L TSH 3.300 (0.300-4.500) uIu/ml Urine Color Urine Appearance (Clear) Urine pH (4.5-7.5) Ur Specific [place] (1.000-1.030) Urine Protein (Negative) Urine Glucose (UA) (Negative) Urine Ketones (Negative) Urine Blood (Negative) Urine Nitrite (Negative) Urine Bilirubin (Negative) Urine Urobilinogen (Negative) Ur Leukocyte Esterase (Negative) Lyme Disease IgG Ab (Negative) Lyme Disease IgM Ab (Negative) COVID-19 Eval Order SARS-CoV-2 (PCR) (Negative) Medications Administered Current Inpatient Medications Acetaminophen (Acetaminophen 325 Mg Tab) 650 mg PO Q4H PRN PRN Reason: Pain or Fever Stop: 08/12/21 06:31 Docusate Sodium (Docusate Sodium 100 Mg Cap) 100 mg PO DAILY [facility] Stop: 08/12/21 08:59 Last Admin: 07/13/21 09:51 Dose: 100 mg Documented by: Enoxaparin Sodium (Enoxaparin Inj 40 Mg/0.4 Ml Syr) 40 mg SQ Q24H [facility] Stop: 08/12/21 08:59 Last Admin: 07/13/21 10:40 Dose: Not Given Documented by: Sodium Chloride (Nss 1000ml) 1,000 mls @ 80 mls/hr IV .[id number] [facility] Stop: 07/13/21 19:01 Lisinopril (Lisinopril 2.5 Mg Tab) 2.5 mg PO DAILY [facility] Stop: 08/12/21 08:59 Last Admin: 07/13/21 09:51 Dose: 2.5 mg Documented by: Multivitamins (Multivitamin Tab) 1 tab PO QAM [facility] Stop: 08/12/21 08:59 Last Admin: 07/13/21 09:52 Dose: 1 tab Documented by: Polyethylene Glycol (Polyethylene (Miralax) 17 Gm Pack) 17 gm PO DAILY PRN PRN Reason: Constipation Stop: 08/12/21 06:31 Simvastatin (Simvastatin 40 Mg Tab) 40 mg PO QPM [facility] Stop: 08/12/21 20:59
--- NOTE | 2021-07-13 15:45 | Cardiology Consultation ---
Date of Consultation July 13, 2021 Assessment & Plan (1) Syncope and collapse: (2) Sinus bradycardia: (3) Left bundle branch block: (4) Non-ischemic cardiomyopathy: Dillon has a longstanding history of left bundle branch block that had initially been diagnosed as part of a preoperative evaluation before a hernia repair in 2003. In 2008, at the time of an echocardiogram his ejection fraction was in the range of 25%, prompting a cardiac catheterization which revealed no obstructive disease. With ongoing observation his ejection fraction has been stable with most recent measurement in March, of 45 to 49%. Complicating his history is that he has a past history of vasovagal syncope. He has felt nauseous and lightheaded when attending medical appointments or having blood draws in the past. When I had initially seen him in consultation in March, in our office, we discussed the natural history of left bundle branch block, and he was actually on the exam table while I discussed possible need for future pacemaker with him, and he actually had a loss of consciousness episode that I witnessed at that time which was felt to be characteristic of his previous vasovagal episodes. With regards to the episode that he had all on board the plane yesterday, his spouse who participated in his evaluation by telephone call today described that she had never witnessed him to have an episode like this and that this episode was different she felt than his previous episodes. The episode was very profound, he had annmarie loss of consciousness and did not come to for quite some time, and it was associated with profound paleness and heavy perspiration. The patient's echocardiogram today reveals abnormal septal motion consistent with left bundle branch block, and moderate left ventricular systolic dysfunction with ejection fraction in the range of 30 to 35%. Given findings of nonexertional syncope, with left bundle branch block, wide QRS duration of 160 ms, and worsening left ventricular systolic dysfunction, I think it is most appropriate to consider proceeding with a cardiac resynchronization therapy capable pacemaker defibrillator at this time. Patient is agreeable. He is to remain in the hospital. Today is Thursday, I anticipate that the procedure will take place early next week pending EP input and scheduling. History of Present Illness Attending Physician: Douglas Braga MD History of Present Illness Mr Blake is a 66-year-old male seen in cardiology consultation per the request of Dr. Norton for the evaluation of syncope and bradycardia. The patient is well-known to the undersigned as I have followed him as an outpatient for the last several years. His cardiac history dates back to 2008 when he was initially diagnosed with a left bundle branch block and moderate left ventricular systolic dysfunction. He underwent a cardiac catheterization performed 01/05/[address] Ladd with findings of mild luminal irregularities without obstructive CAD at that time. He has been on medical therapy for hypertension and cardiomyopathy including low-dose lisinopril. He has not been a candidate for beta-praneeth therapy due to underlying sinus bradycardia. His most recent outpatient echocardiogram had been in March, at which time stable mild left ventricular systolic dysfunction with ejection fraction in the range of 45 to 49% was observed. Patient states that recently he has been feeling well. He actually had traveled out west with his spouse, Sparkle, and last week they had done hiking in [place], [place]. He notes no perceived limitation with regards to walking, no recent exertional shortness of breath. They were flying home yesterday, and he was on a flight from [facility]. He describes initially feeling well, and then he felt like it had been warm. He was watching a movie on his tablet. His spouse witnessed him to be perspiring heavily and then he had a loss of consciousness episode. He was unresponsive. He was assisted by the flight attendants as well as a ship carpenter that was on board the plane. He was moved out of his seat, and his vital signs were obtained and he was apparently bradycardic, his spouse believes that they recorded a heart rate of 30 bpm on him. There was debate with the maritime pilot with regards to rerouting the plane for an emergency landing, but ultimately he improved, he was moved to a space in the back of the plane where there was more room, and he felt better. He was improved by the time they landed and he was transitioned to his connection flight to [place] by wheelchair, and presented to the emergency department here. While here, he has had no recurrence of his symptoms. Sinus bradycardia in the 40s to 50s has been observed. Blood pressure has been stable in the low 100s which is his typical baseline. Allergies Allergy/AdvReac Type Severity Reaction Status Date / Time tramadol AdvReac Severe VOMITING Verified 07/13/21 02:16 Home Medications Medication Instructions Recorded Confirmed Type lisinopril 2.5 mg tablet 2.5 mg PO DAILY 03/08/21 10/30/21 History simvastatin 40 mg tablet 40 mg PO QPM 11/19/20 07/13/21 History docusate sodium 100 mg capsule 100 mg PO DAILY 07/13/21 07/13/21 History (Stool Softener) multivitamin 1 tab PO DAILY 07/13/21 07/13/21 History omega [id number]-fish oil 1,200 mg 1 cap PO DAILY 07/13/21 07/13/21 History (144 mg-216 mg) capsule (Fish Oil) Patient History Medical History Cardiomyopathy Cellulitis Diarrhea Dyslipidemia Hx of left bundle branch block Insomnia Knee pain Nasal polyps Skin tag Sleep disturbances Surgical History History of back surgery History of laparoscopic appendectomy Hx of anterior cruciate ligament surgery Hx of cataract surgery Hx of hernia repair Hx of rotator cuff surgery Family History Other Epilepsy Social History Smoking Status: Former smoker Tobacco Type: Cigarettes Hx Alcohol Use: Yes Alcohol type: hard liquor Hx Substance Use: No Preferred Language: Bhutanese Communication Ability: Effective Cable Armorer Required: No Beliefs That Will Affect Care: Advent marital status: Current Living Situation: Spouse How many Children do You have: 1 Other Information That Helps Us Care for You: No Feels Safe at Home: Yes Safety Concerns: Feels Safe At This Time Assistive Devices: None Review of Systems Review of Systems: All systems reviewed & are unremarkable except as noted in HPI & below Physical Exam Physical Exam: Temp Pulse Resp BP Pulse Ox 37 C 55 L 18 111/68 94 07/13/21 12:48 07/13/21 12:48 07/13/21 12:48 07/13/21 12:48 07/13/21 12:48 Constitutional: WD/WN, vitals as above Respiratory: normal respiratory effort, lungs clear to auscultation Cardiovascular: RRR, no murmur, no edema Gastrointestinal (Abdomen): normal bowel sounds, soft, nontender, no hepatosplenomegaly Neurologic: PERRL, EOMI, accommodation nl, no face palsy, no dysarthria Results & Data ([facility]) Vital Signs (Past 12 Hours) Vital Signs Temp Pulse Pulse Resp BP BP Pulse Ox 07/13/21 12:48 37 C 55 L 18 111/68 94 07/13/21 08:30 36.8 C 57 L 18 116/66 96 07/13/21 06:45 36.6 C 57 L 16 129/73 94 07/13/21 06:00 58 L 17 122/70 96 07/13/21 05:30 50 L 12 118/63 96 07/13/21 05:00 50 L 13 122/67 98 07/13/21 04:30 60 14 97 07/13/21 04:00 53 L 15 119/59 L 96 07/13/21 03:55 38 L Laboratory Results Cardiac Enzymes 07/13/21 07/13/21 07/13/21 Range/Units 01:30 07:39 12:52 AST 16 (15-37) U/L Troponin I < 0.015 < 0.015 < 0.015 (0-0.045) ng/ml Coagulation 07/13/21 Range/Units 01:30 PT 9.6 (9.0-12.0) Seconds APTT 24.0 (21.0-31.0) Seconds CBC 07/13/21 07/13/21 Range/Units 01:30 07:39 WBC 7.89 7.84 (4.8-10.8) K/uL RBC 4.49 L 4.24 L (4.7-6.1) M/uL Hgb 14.5 13.6 L (14.0-18.0) g/dL Hct 43.3 40.8 L (42-52) % Plt Count 177 158 (130-400) K/uL Neut # (Auto) 4.22 3.74 (1.4-6.5) K/uL Lymph # (Auto) 2.46 2.86 (1.2-3.4) K/uL [place] # (Auto) 0.94 H 0.86 H (0.11-0.59) K/uL Eos # (Auto) 0.23 0.35 (0-0.5) K/uL Baso # (Auto) 0.02 0.02 (0-0.2) K/uL Comprehensive Metabolic Panel 07/13/21 07/13/21 Range/Units 01:30 07:39 Sodium 137 140 (136-145) mmol/L Potassium 4.3 3.9 (3.5-5.1) mmol/L Chloride 107 110 H (98-107) mmol/L Carbon Dioxide 27 25 (21-32) mmol/L BUN 20 H 15 (7-18) mg/dl Creatinine 0.98 0.84 (0.6-1.4) mg/dl Glucose 100 H 100 H (70-99) mg/dl Calcium 9.2 8.8 (8.5-10.1) mg/dl AST 16 (15-37) U/L ALT 20 (12-78) U/L Alkaline Phosphatase 41 L (45-117) U/L Total Protein 7.3 (6.4-8.2) gm/dl Albumin 3.8 (3.4-5.0) gm/dl Intake and Output 07/13/21 07/13/21 07/13/21 06:59 14:59 22:59 Intake Total 1000 / 1000 Balance 1000 / 1000 Intake: IV 1000 / 1000 Sodium Chloride 0.9% 1000ML 1, 1000 / 1000 000 ml @ 999 mls/hr IV .[id number] [facility] Rx#:[id number] Other: Weight 86 kg Weight Measurement Method Chair Scale Diagnostic Findings EKG performed 07/13/2021 at 1:30 AM and reviewed independently revealed sinus bradycardia at 48 bpm with left bundle branch block, QRS duration 164 ms. Compared to his previous outpatient EKG dated 04/05/2021, sinus bradycardia at 54 bpm was present at that time, the QRS duration was 164 ms.
--- NOTE | 2021-07-13 16:14 | Emergency Department Note ---
ED Visit Note I saw this patient in conjunction with Steve Barrera PA-C. I agree with his decision making and treatment plan. .
[2021-07-13] MEDS: SIMVASTATIN 40 MG TAB PO SCH (20:40)
[2021-07-14 04:47] LABS: Hematocrit (blood only) 43.7 % (42-52); Hemoglobin 14.6 g/dL (14.0-18.0); Mean Corpuscular Hemoglobin 32.2 pg (25-34); Mean Corpuscular Hgb Conc 33.4 g/dL (32-36); Mean Corpuscular Volume 96.5 fL (80-100); Mean Platelet Volume 10.7 fL (7.4-10.4); Platelet Count 151 K/uL (130-400); RDW Coefficient of Variation 14.1 % (11.5-14.5); RDW Standard Deviation 50.3 fL (36.4-46.3); Red Blood Count 4.53 M/uL (4.7-6.1); White Blood Count 6.94 K/uL (4.8-10.8)
[2021-07-14 05:06] LABS: BUN Creatinine Ratio 14.4 (10-20); Calcium 8.8 mg/dl (8.5-10.1); Creatinine Clr Calc Pharmacy 88.3 ml/min; Est GFR (African American) 102.8 ml/min; Est GFR (Non-African American) 88.7 ml/min; Magnesium 2.2 mg/dl (1.8-2.4); Phosphorus 3.2 mg/dl (2.5-4.9); Potassium 3.9 mmol/L (3.5-5.1)
--- NOTE | 2021-07-14 07:57 | Electrocardiogram Report ---
Test Reason : Blood Pressure : / mmHG Vent. Rate : 045 BPM Atrial Rate : 045 BPM P-R Int : 162 ms QRS Dur : 174 ms QT Int : 540 ms P-R-T Axes : 077 000 -80 degrees QTc Int : 467 ms Sinus bradycardia Left bundle branch block Abnormal ECG When compared with ECG of 13-JUL-2021 01:30, No significant change was found Confirmed by Chucky Hernandez ([id number]) on 07/14/2021 7:56:58 AM Referred By: REFERRED SELF Confirmed By:Kt Hernandez
[2021-07-14] MEDS: ENOXAPARIN INJ 40 MG/0.4 ML SYR SQ SCH (08:21)
[2021-07-14] MEDS: MULTIVITAMIN TAB PO SCH (08:21)
[2021-07-14] MEDS: lisinopril 2.5 MG TAB PO SCH (08:21)
[2021-07-14] MEDS: DOCUSATE SODIUM 100 MG CAP PO SCH (08:21)
--- NOTE | 2021-07-14 08:52 | Hospitalist Progress Note ---
Date of Service July 14, 2021 Assessment & Plan (1) Syncope and collapse: (2) Sinus bradycardia: (3) Left bundle branch block: (4) Non-ischemic cardiomyopathy: Plan: 66-year-old male presents with syncope, also found to have bradycardia. 1. [place] [facility] [place] pt also bradycardic. - EKG shows no acute findings except for sinus bradycardia, chronic LBBB. - Troponin is negative. - The patient denies any tick bites. - Otherwise, he is very active. - Patient has idiopathic cardiomyopathy, EF of 45-50%. 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 His cardiac catheterization done in 12/2018 showed mild luminal irregularities without obstructive coronary disease. We will monitor in tele floor follow orthostatics. Echocardiogram obtained - sinus bradycardia was present during the study. There is mild concentric LVH. Septal motion is abnormal consistent with LBBB. Mild diffuse LV hypokinesis is otherwise present. LV systolic function is moderately reduced. LVEF 30 to 35%. Grade 1 diastolic dysfunction. There is no significant valvular pathology. Cardiology consulted - Given findings of nonexertional syncope, with left bundle branch block, wide QRS duration of 160 ms, and worsening left ventricular systolic dysfunction, think it is most appropriate to consider proceeding with a cardiac resynchronization therapy capable pacemaker defibrillator at this time. Patient is agreeable. He is to remain in the hospital, anticipate that the procedure will take place early next week pending EP input and scheduling. 2. History of hypertension: Continue lisinopril. Monitor the blood pressure. 3. Hyperlipidemia: Continue statin. DVT prophylaxis: Lovenox. DISPOSITION: Closely monitor on tele floor. Code: Full code Admission and Anticipated Discharge Date Admission Date: July 13, 2021 Subjective Patient seen in follow-up of syncopal episode, chronic LBBB, bradycardia Currently in no acute distress, patient's at the bedside Patient denies any chest pain, palpitations, shortness of breath, lightheadedness or dizziness Also denies any fevers, chills, nausea, abdominal pain Review of Systems Review of Systems: All systems reviewed & are unremarkable except as noted in Subjective Physical Exam Physical Exam: GENERAL: The patient is of moderate build, not in acute distress. HEENT: NC/AT, EOMI, PERRL, Oral mucosa moist. NECK: No JVD or neck masses. CARDIOVASCULAR: S1 and S2 heard. Regular rate and rhythm. No murmur, no gallop. RESPIRATORY SYSTEM: Normal AP diameter. No accessory muscle use. No wheezing, no crackles. ABDOMEN: Soft, bowel sounds present, nontender, no distention. NEURO:Alert and oriented, answers questions appropriately, no facial asymmetry, speech fluent, moves extremities EXTREMITIES: No edema, no erythema. Results & Data Results & Data ([facility]) Vital Signs (Past 12 Hours) Vital Signs Temp Pulse Resp BP Pulse Ox 07/14/21 08:49 58 L 14 117/71 98 07/14/21 04:00 36.7 C 45 L 18 122/64 95 07/13/21 23:45 37.1 C 49 L 20 127/68 96 Laboratory Results 07/14/21 07/14/21 07/13/21 Range/Units 04:22 04:22 12:52 WBC 6.94 (4.8-10.8) K/uL RBC 4.53 L (4.7-6.1) M/uL Hgb 14.6 (14.0-18.0) g/dL Hct 43.7 (42-52) % MCV 96.5 (80-100) fL MCH 32.2 (25-34) pg MCHC 33.4 (32-36) g/dL RDW Std Deviation 50.3 H (36.4-46.3) fL RDW Coeff of Maribel 14.1 (11.5-14.5) % Plt Count 151 (130-400) K/uL MPV 10.7 H (7.4-10.4) fL Sodium 138 (136-145) mmol/L Potassium 3.9 (3.5-5.1) mmol/L Chloride 108 H (98-107) mmol/L Carbon Dioxide 26 (21-32) mmol/L Anion Gap 4.0 (3-11) BUN 13 (7-18) mg/dl Creatinine 0.87 (0.6-1.4) mg/dl Est Cr Clr Drug Dosing 88.3 ml/min Est GFR ( Amer) 102.8 ml/min Est GFR (Non-Af Amer) 88.7 ml/min BUN/Creatinine Ratio 14.4 (10-20) Glucose 103 H (70-99) mg/dl Calcium 8.8 (8.5-10.1) mg/dl Phosphorus 3.2 (2.5-4.9) mg/dl Magnesium 2.2 (1.8-2.4) mg/dl Troponin I < 0.015 (0-0.045) ng/ml Medications Administered Current Inpatient Medications Acetaminophen (Acetaminophen 325 Mg Tab) 650 mg PO Q4H PRN PRN Reason: Pain or Fever Stop: 08/12/21 06:31 Docusate Sodium (Docusate Sodium 100 Mg Cap) 100 mg PO DAILY [facility] Stop: 08/12/21 08:59 Last Admin: 07/14/21 08:21 Dose: 100 mg Documented by: Enoxaparin Sodium (Enoxaparin Inj 40 Mg/0.4 Ml Syr) 40 mg SQ Q24H [facility] Stop: 08/12/21 08:59 Last Admin: 07/14/21 08:21 Dose: 40 mg Documented by: Lisinopril (Lisinopril 2.5 Mg Tab) 2.5 mg PO DAILY [facility] Stop: 08/12/21 08:59 Last Admin: 07/14/21 08:21 Dose: 2.5 mg Documented by: Multivitamins (Multivitamin Tab) 1 tab PO QAM [facility] Stop: 08/12/21 08:59 Last Admin: 07/14/21 08:21 Dose: 1 tab Documented by: Polyethylene Glycol (Polyethylene (Miralax) 17 Gm Pack) 17 gm PO DAILY PRN PRN Reason: Constipation Stop: 08/12/21 06:31 Simvastatin (Simvastatin 40 Mg Tab) 40 mg PO QPM [facility] Stop: 08/12/21 20:59 Last Admin: 07/13/21 20:40 Dose: 40 mg Documented by:
--- NOTE | 2021-07-14 15:47 | Cardiology Progress Note ---
Date of Service July 14, 2021 Assessment & Plan (1) Syncope and collapse: (2) Non-ischemic cardiomyopathy: (3) Left bundle branch block: (4) Sinus bradycardia: Plan: Continue observation on telemetry, plan for CAMP MANAGER ICD on 07/15 or 07/16. Admission and Anticipated Discharge Date Admission Date: July 13, 2021 Subjective Patient seen in follow-up. No events overnight last night. At rest, heart rates are in the upper 40s to 50s, and as low as 30 bpm with sleep. No ventricular arrhythmias. No prolonged pauses. Review of Systems Review of Systems: All systems reviewed & are unremarkable except as noted in HPI & below Physical Exam Physical Exam: Temp Pulse Resp BP Pulse Ox 36.7 C 71 16 127/77 98 07/14/21 04:00 07/14/21 15:07 07/14/21 12:32 07/14/21 12:32 07/14/21 12:32 Constitutional: WD/WN, vitals as above Respiratory: normal respiratory effort, lungs clear to auscultation Cardiovascular: RRR, no murmur, no edema Chest (Breasts): normal inspection/palpation of breasts Gastrointestinal (Abdomen): normal bowel sounds, soft, nontender, no hepatosplenomegaly Neurologic: PERRL, EOMI, accommodation nl, no face palsy, no dysarthria Results & Data ([facility]) Vital Signs (Past 12 Hours) Vital Signs Temp Pulse Pulse Resp BP Pulse Ox 07/14/21 15:07 71 07/14/21 12:32 71 16 127/77 98 07/14/21 12:25 77 07/14/21 11:41 63 14 128/71 07/14/21 08:49 58 L 14 117/71 98 07/14/21 04:00 36.7 C 45 L 18 122/64 95 Laboratory Results CBC 07/14/21 Range/Units 04:22 WBC 6.94 (4.8-10.8) K/uL RBC 4.53 L (4.7-6.1) M/uL Hgb 14.6 (14.0-18.0) g/dL Hct 43.7 (42-52) % Plt Count 151 (130-400) K/uL Comprehensive Metabolic Panel 07/14/21 Range/Units 04:22 Sodium 138 (136-145) mmol/L Potassium 3.9 (3.5-5.1) mmol/L Chloride 108 H (98-107) mmol/L Carbon Dioxide 26 (21-32) mmol/L BUN 13 (7-18) mg/dl Creatinine 0.87 (0.6-1.4) mg/dl Glucose 103 H (70-99) mg/dl Calcium 8.8 (8.5-10.1) mg/dl Intake and Output 07/14/21 07/14/21 07/14/21 06:59 14:59 22:59 Intake Total 150 / 1630 Balance 150 / 1630 Intake: Oral 150 / 630 Other: # Unmeasured Voids 1 Weight 86.1 kg Weight Measurement Method Built in [facility]
[2021-07-14] MEDS: SIMVASTATIN 40 MG TAB PO SCH (19:59)
[2021-07-15 08:01] LABS: BUN Creatinine Ratio 13.7 (10-20); Calcium 9.2 mg/dl (8.5-10.1); Creatinine Clr Calc Pharmacy 77.7 ml/min; Est GFR (Non-African American) 86.3 ml/min; Magnesium 2.1 mg/dl (1.8-2.4); Potassium 3.9 mmol/L (3.5-5.1)
[2021-07-15] MEDS: MULTIVITAMIN TAB PO SCH (09:11)
[2021-07-15] MEDS: ENOXAPARIN INJ 40 MG/0.4 ML SYR SQ SCH (09:11)
[2021-07-15] MEDS: lisinopril 2.5 MG TAB PO SCH (09:11)
[2021-07-15] MEDS: DOCUSATE SODIUM 100 MG CAP PO SCH (09:15)
--- NOTE | 2021-07-15 11:38 | Cardiology Progress Note ---
Date of Service July 15, 2021 Assessment & Plan (1) Syncope and collapse: (2) Non-ischemic cardiomyopathy: (3) Left bundle branch block: (4) Sinus bradycardia: Plan: Continue observation on telemetry, plan for PHOTOGRAMMETRIC ENGINEER ICD on 07/16. Continue lisinopril. Admission and Anticipated Discharge Date Admission Date: July 13, 2021 Subjective Patient seen in follow up of syncope. No recurrent symptoms. SR in the 60s noted this am on telemetry, SB in 50s during sleep. Review of Systems Review of Systems: All systems reviewed & are unremarkable except as noted in HPI & below Physical Exam Physical Exam: Temp Pulse Resp BP Pulse Ox 36.5 C 58 L 17 102/60 95 07/15/21 11:21 07/15/21 11:21 07/15/21 11:21 07/15/21 11:21 07/15/21 11:21 Constitutional: WD/WN, vitals as above Respiratory: normal respiratory effort, lungs clear to auscultation Cardiovascular: RRR, no murmur, no edema Gastrointestinal (Abdomen): normal bowel sounds, soft, nontender, no hepatosplenomegaly Neurologic: PERRL, EOMI, accommodation nl, no face palsy, no dysarthria Results & Data ([facility]) Vital Signs (Past 12 Hours) Vital Signs Temp Pulse Pulse Resp BP BP Pulse Ox 07/15/21 11:21 36.5 C 58 L 17 102/60 95 07/15/21 07:28 36.7 C 50 L 16 114/69 93 07/15/21 04:18 69 18 112/78 94 07/14/21 23:44 36.4 C L 53 L 16 118/70 97 Laboratory Results Temp Pulse Resp BP Pulse Ox 36.5 C 58 L 17 102/60 95 07/15/21 11:21 07/15/21 11:21 07/15/21 11:21 07/15/21 11:21 07/15/21 11:21
--- NOTE | 2021-07-15 11:46 | Electrocardiogram Report ---
Test Reason : Blood Pressure : / mmHG Vent. Rate : 041 BPM Atrial Rate : 041 BPM P-R Int : 168 ms QRS Dur : 174 ms QT Int : 538 ms P-R-T Axes : 073 022 -87 degrees QTc Int : 443 ms Marked sinus bradycardia Left bundle branch block Abnormal ECG When compared with ECG of 14-JUL-2021 04:52, No significant change was found Confirmed by Chucky Hernandez ([id number]) on 07/15/2021 11:46:21 AM Referred By: REFERRED SELF Confirmed By:Kt Hernandez
--- NOTE | 2021-07-15 11:49 | Hospitalist Progress Note ---
Date of Service July 15, 2021 Assessment & Plan (1) Syncope and collapse: (2) Sinus bradycardia: (3) Left bundle branch block: (4) Non-ischemic cardiomyopathy: Plan: 66-year-old male presents with syncope, also found to have bradycardia. 1. Syncope, while flying back from [place] to [facility]. - in the ER pt also bradycardic. - EKG shows no acute findings except for sinus bradycardia, chronic LBBB. - Troponin is negative. - The patient denies any tick bites. - Otherwise, he is very active. - Patient has idiopathic cardiomyopathy, EF of 45-50%. 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 His cardiac catheterization done in 12/2018 showed mild luminal irregularities without obstructive coronary disease. We will monitor in tele floor follow orthostatics. Echocardiogram obtained - sinus bradycardia was present during the study. There is mild concentric LVH. Septal motion is abnormal consistent with LBBB. Mild diffuse LV hypokinesis is otherwise present. LV systolic function is moderately reduced. LVEF 30 to 35%. Grade 1 diastolic dysfunction. There is no significant valvular pathology. Cardiology consulted - Given findings of nonexertional syncope, with left bundle branch block, wide QRS duration of 160 ms, and worsening left ventricular systolic dysfunction, think it is most appropriate to consider proceeding with a cardiac resynchronization therapy capable pacemaker defibrillator at this time. Patient is agreeable. He is to remain in the hospital, anticipate that the procedure will take place early next week pending EP input and scheduling. Likely tomorrow 07/16. 2. History of hypertension: Continue lisinopril. Monitor the blood pressure. 3. Hyperlipidemia: Continue statin. DVT prophylaxis: Lovenox. DISPOSITION: Closely monitor on tele floor. Code: Full code Admission and Anticipated Discharge Date Admission Date: July 13, 2021 Subjective Patient seen in follow-up of syncopal episode, chronic LBBB, bradycardia Currently in no acute distress Patient denies any chest pain, palpitations, shortness of breath, lightheadedness or dizziness Also denies any fevers, chills, nausea, abdominal pain Review of Systems Review of Systems: All systems reviewed & are unremarkable except as noted in Subjective Physical Exam Physical Exam: GENERAL: The patient is of moderate build, not in acute distress. HEENT: NC/AT, EOMI, PERRL, Oral mucosa moist. NECK: No JVD or neck masses. CARDIOVASCULAR: S1 and S2 heard. Regular rate and rhythm. No murmur, no gallop. RESPIRATORY SYSTEM: Normal AP diameter. No accessory muscle use. No wheezing, no crackles. ABDOMEN: Soft, bowel sounds present, nontender, no distention. NEURO:Alert and oriented, answers questions appropriately, no facial asymmetry, speech fluent, moves extremities EXTREMITIES: No edema, no erythema. Results & Data Results & Data ([facility]) Vital Signs (Past 12 Hours) Vital Signs Temp Pulse Resp BP BP Pulse Ox 07/15/21 11: 36.5 C 58 L 17 102/60 95 07/15/21 07:28 36.7 C 50 L 16 114/69 93 07/15/21 04:18 69 18 112/78 94 Laboratory Results 07/15/21 07/15/21 07/15/21 Range/Units 11:17 07:15 06:27 Sodium 139 (136-145) mmol/L Potassium 3.9 (3.5-5.1) mmol/L Chloride 105 (98-107) mmol/L Carbon Dioxide 27 (21-32) mmol/L Anion Gap 6.0 (3-11) BUN 13 (7-18) mg/dl Creatinine 0.91 (0.6-1.4) mg/dl Est Cr Clr Drug Dosing 77.7 ml/min Est GFR ( Amer) 100.0 ml/min Est GFR (Non-Af Amer) 86.3 ml/min BUN/Creatinine Ratio 13.7 (10-20) Glucose 97 (70-99) mg/dl POC Glucose 82 95 (70-99) mg/dl Calcium 9.2 (8.5-10.1) mg/dl Magnesium 2.1 (1.8-2.4) mg/dl Medications Administered Current Inpatient Medications Acetaminophen (Acetaminophen 325 Mg Tab) 650 mg PO Q4H PRN PRN Reason: Pain or Fever Stop: 08/12/21 06:31 Docusate Sodium (Docusate Sodium 100 Mg Cap) 100 mg PO DAILY [facility] Stop: 08/12/21 08:59 Last Admin: 07/15/21 09:15 Dose: 100 mg Documented by: Enoxaparin Sodium (Enoxaparin Inj 40 Mg/0.4 Ml Syr) 40 mg SQ Q24H [facility] Stop: 08/12/21 08:59 Last Admin: 07/15/21 09:11 Dose: 40 mg Documented by: Lisinopril (Lisinopril 2.5 Mg Tab) 2.5 mg PO DAILY [facility] Stop: 08/12/21 08:59 Last Admin: 07/15/21 09:11 Dose: 2.5 mg Documented by: Multivitamins (Multivitamin Tab) 1 tab PO QAM [facility] Stop: 08/12/21 08:59 Last Admin: 07/15/21 09:11 Dose: 1 tab Documented by: Polyethylene Glycol (Polyethylene (Miralax) 17 Gm Pack) 17 gm PO DAILY PRN PRN Reason: Constipation Stop: 08/12/21 06:31 Simvastatin (Simvastatin 40 Mg Tab) 40 mg PO QPM [facility] Stop: 08/12/21 20:59 Last Admin: 07/14/21 19:59 Dose: 40 mg Documented by:
[2021-07-15] MEDS: SIMVASTATIN 40 MG TAB PO SCH (20:18)
[2021-07-16] MEDS ORDERED: VANCOMYCIN HCL 1000MG/20ML VIAL ONE (06:51)
[2021-07-16] MEDS ORDERED: WATER, STERILE FOR INJ 10 ML VIAL ONE (06:51)
[2021-07-16] MEDS ORDERED: BUPIVACAINE 0.25% 30 ML VIAL ONE (06:51)
[2021-07-16] MEDS ORDERED: LIDOCAINE 1% LOCAL 20 ML VIAL ONE (06:51)
--- NOTE | 2021-07-16 07:28 | Hospitalist Progress Note ---
Date of Service July 16, 2021 Assessment & Plan (1) Syncope and collapse: (2) Sinus bradycardia: (3) Left bundle branch block: (4) Non-ischemic cardiomyopathy: Plan: 66-year-old male presents with syncope, also found to have bradycardia. 1. Syncope, while flying back from [place] to [facility]. - in the ER pt also bradycardic. - EKG shows no acute findings except for sinus bradycardia, chronic LBBB. - Troponin is negative. - The patient denies any tick bites. - Otherwise, he is very active. - Patient has idiopathic cardiomyopathy, EF of 45-50%. 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 His cardiac catheterization done in 12/2018 showed mild luminal irregularities without obstructive coronary disease. We will monitor in tele floor follow orthostatics. Echocardiogram obtained - sinus bradycardia was present during the study. There is mild concentric LVH. Septal motion is abnormal consistent with LBBB. Mild diffuse LV hypokinesis is otherwise present. LV systolic function is moderately reduced. LVEF 30 to 35%. Grade 1 diastolic dysfunction. There is no significant valvular pathology. Cardiology consulted - Given findings of nonexertional syncope, with LBBB, wide QRS, and worsening left ventricular systolic dysfunction, think it is most appropriate to consider proceeding with a cardiac resynchronization therapy capable pacemaker defibrillator at this time. Patient is agreeable. EP consulted Pt is now s/p AICD, with RA, RV, His lead. by Dr. Berger - 07/16. 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 Wound check and follow up within 7-10 days per new device routine. 2. History of hypertension: Continue lisinopril. Monitor the blood pressure. 3. Hyperlipidemia: Continue statin. DVT prophylaxis: Lovenox. DISPOSITION: Plan to DC home Code: Full code Admission and Anticipated Discharge Date Admission Date: July 13, 2021 Subjective Patient seen in follow-up of syncopal episode, chronic LBBB, bradycardia Currently in no acute distress Patient denies any chest pain, palpitations, shortness of breath, lightheadedness or dizziness Also denies any fevers, chills, nausea, abdominal pain Pt s/p BiV AICD placement today, plan to DC Review of Systems Review of Systems: All systems reviewed & are unremarkable except as noted in Subjective Physical Exam Physical Exam: GENERAL: The patient is of moderate build, not in acute distress. HEENT: NC/AT, EOMI, PERRL, Oral mucosa moist. NECK: No JVD or neck masses. CARDIOVASCULAR: S1 and S2 heard. Regular rate and rhythm. No murmur, no gallop. RESPIRATORY SYSTEM: Normal AP diameter. No accessory muscle use. No wheezing, no crackles. ABDOMEN: Soft, bowel sounds present, nontender, no distention. NEURO:Alert and oriented, answers questions appropriately, no facial asymmetry, speech fluent, moves extremities EXTREMITIES: No edema, no erythema. Results & Data Results & Data ([facility]) Vital Signs (Past 12 Hours) Vital Signs Temp Pulse Pulse Resp BP BP Pulse Ox 07/16/21 04:07 36.5 C 53 L 17 114/68 96 07/16/21 00:30 36.6 C 53 L 18 127/77 95 07/15/21 19:42 36.6 C 53 L 18 118/72 96 Laboratory Results 07/16/21 07/15/21 Range/Units 06:21 16:20 Sodium 137 (136-145) mmol/L Potassium 4.2 (3.5-5.1) mmol/L Chloride 106 (98-107) mmol/L Carbon Dioxide 24 (21-32) mmol/L Anion Gap 7.0 (3-11) BUN 16 (7-18) mg/dl Creatinine 0.96 (0.6-1.4) mg/dl Est Cr Clr Drug Dosing 73.6 ml/min Est GFR ( Amer) 93.8 ml/min Est GFR (Non-Af Amer) 80.9 ml/min BUN/Creatinine Ratio 16.5 (10-20) Glucose 97 (70-99) mg/dl POC Glucose 98 (70-99) mg/dl Calcium 9.8 (8.5-10.1) mg/dl Magnesium 2.1 (1.8-2.4) mg/dl Specimen Hemolysis Medications Administered Current Inpatient Medications Acetaminophen (Acetaminophen 325 Mg Tab) 650 mg PO Q4H PRN PRN Reason: Pain or Fever Stop: 08/12/21 06:31 Docusate Sodium (Docusate Sodium 100 Mg Cap) 100 mg PO DAILY [facility] Stop: 08/12/21 08:59 Last Admin: 07/16/21 10:45 Dose: 100 mg Documented by: Enoxaparin Sodium (Enoxaparin Inj 40 Mg/0.4 Ml Syr) 40 mg SQ Q24H [facility] Stop: 08/12/21 08:59 Last Admin: 07/16/21 10:43 Dose: 40 mg Documented by: Lisinopril (Lisinopril 2.5 Mg Tab) 2.5 mg PO DAILY [facility] Stop: 08/12/21 08:59 Last Admin: 07/16/21 10:43 Dose: 2.5 mg Documented by: Multivitamins (Multivitamin Tab) 1 tab PO QAM [facility] Stop: 08/12/21 08:59 Last Admin: 07/16/21 10:43 Dose: 1 tab Documented by: Polyethylene Glycol (Polyethylene (Miralax) 17 Gm Pack) 17 gm PO DAILY PRN PRN Reason: Constipation Stop: 08/12/21 06:31 Simvastatin (Simvastatin 40 Mg Tab) 40 mg PO QPM [facility] Stop: 08/12/21 20:59 Last Admin: 07/15/21 20:18 Dose: 40 mg Documented by:
--- NOTE | 2021-07-16 08:11 | Pre Anesthesia Assessment ---
Date of Service July 16, 2021 Pre Sedation Assessment Vital Signs Temp Pulse Pulse Resp BP BP Pulse Ox 07/16/21 04:07 36.5 C 53 L 17 114/68 96 07/16/21 00:30 36.6 C 53 L 18 127/77 95 07/15/21 19:42 36.6 C 53 L 18 118/72 96 07/15/21 15:18 36.6 C 54 L 20 113/73 94 07/15/21 11:21 36.5 C 58 L 17 102/60 95 Cardiovascular + bradycardic Respiratory normal respiratory effort, lungs clear to auscultation Pre-Sedation Airway Assessment Smoking Status: Former smoker Short, Thick Neck: No Thyromental Distance: > or= 3.5 Finger Breadths Oral Cavity: + Loose Teeth Mallampati Class: III ASA: ASA3 NPO Status Date of Last Intake of Fluids: 07/15/21 Time of Last Intake of Fluids: 20:00 Date of Last Intake of Solid Food: 07/15/21 Time of Last Intake of Solid Foods: 20:00 Procedure Planning Contraindications for Sedation: none Current Medications Reviewed: Yes Notes The planned sedation has been discussed with the patient. Informed Consent was obtained. I have identified the patient, determined the appropriateness of sedation and have assessed the patient immediately prior to the procedure. All medicine(s) and interventions are by my order.
--- NOTE | 2021-07-16 08:11 | History & Physical Bridge Note ---
Date of Service July 16, 2021 History & Physical Bridge Note I have examined the patient, reviewed the History & Physical and in the interval since the performance of the History & Physical I have noted the following changes of clinical significance: pt with syncope, NICM, LBBB and CHF recommend BiV ICD; discussed the procedure and potential risks with the patient; he expressed an understanding and consents signed.
[2021-07-16] MEDS ORDERED: fentaNYL citrate 100 MCG/2 ML VIAL ONE ×2 (08:22→09:29)
[2021-07-16] MEDS ORDERED: MIDAZOLAM HCL 5 MG/ML 1 ML VIAL ONE (08:22)
[2021-07-16 08:42] LABS: BUN Creatinine Ratio 16.5 (10-20); Calcium 9.8 mg/dl (8.5-10.1); Creatinine Clr Calc Pharmacy 73.6 ml/min; Est GFR (African American) 93.8 ml/min; Est GFR (Non-African American) 80.9 ml/min; Magnesium 2.1 mg/dl (1.8-2.4); Potassium 4.2 mmol/L (3.5-5.1)
--- NOTE | 2021-07-16 09:47 | Post Anesthesia Assessment ---
Date of Service July 16, 2021 Post Sedation Assessment Vital Signs Temp Pulse Pulse Pulse Resp BP BP 07/16/21 08:00 59 L 07/16/21 04:07 36.5 C 53 L 17 114/68 07/16/21 00:30 36.6 C 53 L 18 127/77 07/15/21 19:42 36.6 C 53 L 18 118/72 07/15/21 15:18 36.6 C 54 L 20 113/73 07/15/21 11:21 36.5 C 58 L 17 102/60 Pulse Ox 07/16/21 08:00 07/16/21 04:07 96 07/16/21 00:30 95 07/15/21 19:42 96 07/15/21 15:18 94 07/15/21 11:21 95 Recovery Score Activity: Moves 4 extremities Respiration: Deep Breath/Cough Circulation: +/-20% PreAnes Value Consciousness: Fully Awake Oxygen Saturation: > 92% On Room Air Discharge Sedation Level of Care: Fast Track Phase II Post Sedation Plan On clinical assessment, the patient appears to have tolerated the sedation without complications. Patient is recovering as anticipated. Patient will continue to be monitored by nursing and may be discharged when sedation discharge criteria are met per below protocol. Upon Completions of procedure up to 15 minutes continue every 5 minute vital signs and the P.A.R. score; then discharge to a Phase I or Fast Track to Phase II per the following guidelines: * Discharge Patient to appropriate Phase II area if PAR is 8 or greater or return to pre- procedure baseline. The post - procedure orders will be as directed. * If PAR score is less than 8 or not return to pre-procedure baseline then patient will follow Phase I monitoring till PAR is reached for Phase II. The Phase I may be done in procedure room or may call to secure a Phase I area. * If naloxone or flumazenil are used for reversal, hold in Phase I for continued monitoring from when last reversal dose was given for a minimum of 60 minutes or longer pending the nurse and/or physician discretion of patient condition before discharge to Phase II. Please call the Sedation Physician to re-evaluate and complete post-note for discharge to Phase II area. Do NOT discharge from procedure sedation or Phase 1 until post- sedation evaluation note is complete by procedure /sedation MD Sedation Discharge Instructions to be given to the patient at discharge to home.
--- NOTE | 2021-07-16 09:48 | Operative Report ---
Post Operative Report Pre & Post Diagnosis Syncope, LBBB, NICM, CHF-[facility] class III Operation Date: 07/16/21 08:00 <No data on this case meets the specified criteria> I identified the patient and participated in the time-out.: Yes Procedure BiV ICD with intracardiac HIS bundle EGM recordings, peripheral venogram Operation Date: 07/16/21 08:00 <No data on this case meets the specified criteria> Surgeon Faviola Berger, DO Quality Management Coordinator none Estimated Blood Loss 25 Findings Consistent with Post-Op Diagnosis see official report Specimens none Description of Procedure see official report I attest to the content of the Intraoperative Record and any orders documented therein. Any exceptions are noted below.
[2021-07-16] MEDS: lisinopril 2.5 MG TAB PO SCH (10:43)
[2021-07-16] MEDS: MULTIVITAMIN TAB PO SCH (10:43)
[2021-07-16] MEDS: ENOXAPARIN INJ 40 MG/0.4 ML SYR SQ SCH (10:43)
[2021-07-16] MEDS: DOCUSATE SODIUM 100 MG CAP PO SCH (10:45)
--- NOTE | 2021-07-16 13:11 | XRay Report ---
XR chest 1V portable HISTORY: Status post pacemaker/defibrillator. COMPARISON: Chest 07/13/2021. FINDINGS: No pneumothorax. No pleural effusions. No focal lung consolidations to suggest pneumonia. N o evidence for pulmonary edema. The heart is normal in size. There is a left-sided pacemaker/defibril lator. The leads appear intact. Degenerative changes again noted within the shoulders. IMPRESSION: Status post left-sided pacemaker/defibrillator. No pneumothorax. ACT 112: Negative or not required by law. Electronically signed by: Jese May M.D. 07/16/2021 1:09 PM
--- NOTE | 2021-07-16 14:33 | Electrocardiogram Report ---
Test Reason : Blood Pressure : / mmHG Vent. Rate : 070 BPM Atrial Rate : 070 BPM P-R Int : 148 ms QRS Dur : 126 ms QT Int : 416 ms P-R-T Axes : - - 237 degrees QTc Int : 449 ms AV dual-paced rhythm Abnormal ECG When compared with ECG of 15-JUL-2021 06:17, Electronic ventricular pacemaker has replaced Sinus rhythm Vent. rate has increased BY 29 BPM Confirmed by Chucky Hernandez ([id number]) on 07/16/2021 2:32:44 PM Referred By: REFERRED SELF Confirmed By:Kt Hernandez
--- NOTE | 2021-07-16 15:05 | Cardiology Progress Note ---
Date of Service July 16, 2021 Assessment & Plan (1) Syncope and collapse: (2) Sinus bradycardia: (3) Left bundle branch block: (4) Non-ischemic cardiomyopathy: Plan: Pt s/p AICD, with RA, RV, His lead. Transient low BP noted in EP lab with sedation. Improved now, most recent 132/85 No concerning findings on limited echo performed post procedure. CXR with no pneumothorax. Device check =normal function. Pt stable for discharge , completed accelerated recovery. Tylenol for pain. Continue UX RESEARCHER lisinopril. Will arrange wound check and follow up within 7-10 days per new device routine. Admission and Anticipated Discharge Date Admission Date: July 13, 2021 Subjective Pt seen in follow up in room 235-1 s/p ICD with RA, RV, HIS bundle lead. Feeling well, spouse, Sparkle at bedside. Physical Exam Physical Exam: Temp Pulse Resp BP Pulse Ox 36.4 C L 67 18 132/85 97 07/16/21 11:34 07/16/21 11:34 07/16/21 11:34 07/16/21 11:34 07/16/21 11:34 Respiratory: normal respiratory effort, lungs clear to auscultation Cardiovascular: RRR, no murmur, no edema Neurologic: PERRL, EOMI, accommodation nl, no face palsy, no dysarthria Results & Data ([facility]) Vital Signs (Past 12 Hours) Vital Signs Temp Pulse Pulse Pulse Resp BP Pulse Ox 07/16/21 11:34 36.4 C L 67 18 132/85 97 07/16/21 11:13 69 12 128/78 99 07/16/21 10:50 71 12 130/86 96 07/16/21 10:35 36.4 C L 70 70 12 126/86 97 07/16/21 10:10 70 20 126/80 98 07/16/21 09:56 72 18 127/77 97 07/16/21 08:00 59 L 07/16/21 04:07 36.5 C 53 L 17 114/68 96
--- NOTE | 2021-07-23 19:09 | Discharge Summary ---
Date of Service July 16, 2021 Admission HPI Per Admitting Provider This 66-year-old male with past medical history significant for hyperlipidemia, idiopathic cardiomyopathy, left bundle-branch block, chronic premature beats, history of sinus bradycardia, osteoarthritis of shoulder presents with syncope. The patient was in [place], he was hiking for 2 weeks. He did fine, no complaints. He also bikes; when he bikes, he bikes for 16 miles and when the weather is good he also goes to the gym, no problems. On the flight back to [place] from [place] on the way, he was watching iPad, suddenly he was feeling hot and sweaty and his noticed that he is sliding down from a chair and his eyes rolled up and looked pale and she called medical emergency and there were dye reel operator helper in the flight, they took him to the back and communicated with the ground doctor and almost thought to divert the plane, but the patient started to wake up and his initial symptoms have improved, then he came back and sat in his chair. He was in [place] airport [place] 2 hours, he wanted to come [place] and he took the flight to [place] and came directly to the ER. He has some slight dizziness and some slight chest discomfort, but no other complaints. No nausea, no vomiting, no diarrhea, no fevers, no cough, no headache, no blurred visions, no earache, no runny nose, no sore throat. No nausea, no vomiting. Appetite is okay. They were told in [place], when he was hiking, people are getting West Nile disease. The patient had vaccine for COVID with [employer] in September and October, but May, he had COVID positive, on 05/28/2021, he received monoclonal antibodies. Today, his COVID test is negative.Denies any tick bites. Admission Exam Per Admitting Provider GENERAL: The patient is of moderate build, not in acute distress. VITAL SIGNS: Temperature 36.1, pulse 58, respiratory rate 17, blood pressure 122/70, oxygen 96% on room air. HEENT: Pupils equal, round and reactive to light. Oral mucosa moist. NECK: No JVD or neck masses. CARDIOVASCULAR: S1 and S2 heard. Regular rate and rhythm. No murmur, no gallop. RESPIRATORY SYSTEM: Normal AP diameter. No accessory muscle use. No wheezing, no crackles. ABDOMEN: Soft, bowel sounds present, nontender, no distention. CENTRAL NERVOUS SYSTEM: Cranial nerves II-XII grossly intact, nonfocal. EXTREMITIES: No edema, no erythema. Principal Diagnosis Syncope Sinus bradycardia LBBB Nonischemic cardiomyopathy Patient now status post AICD, with RA, RV, His lead Discharge Exam GENERAL: The patient is of moderate build, not in acute distress. HEENT: NC/AT, EOMI, PERRL, Oral mucosa moist. NECK: No JVD or neck masses. CARDIOVASCULAR: S1 and S2 heard. Regular rate and rhythm. No murmur, no gallop. RESPIRATORY SYSTEM: Normal AP diameter. No accessory muscle use. No wheezing, no crackles. ABDOMEN: Soft, bowel sounds present, nontender, no distention. NEURO:Alert and oriented, answers questions appropriately, no facial asymmetry, speech fluent, moves extremities EXTREMITIES: No edema, no erythema. Discharge Data Allergies Allergy/AdvReac Type Severity Reaction Status Date / Time tramadol AdvReac Severe VOMITING Verified 07/13/21 02:16 Consultations 07/13/21 04:52 ED Decision to Admit Stat 07/13/21 08:00 Consult Cardiology Routine Procedures Performed Operation Date: 07/16/21 08:00 Actual Procedures p ICD Insertion Single or Dual - Faviola Berger DO s Lead LV (No Priopr Implant) - Faviola Berger DO s Venogram, Unilateral - Faviola Berger DO s Bundle of his Recording - Faviola Berger DO Ordered Studies 07/16/21 06:45 EP Lab Images for PACS ONCE Hospital Course (1) Syncope and collapse: (2) Sinus bradycardia: (3) Left bundle branch block: (4) Non-ischemic cardiomyopathy: 66-year-old male presents with syncope, also found to have bradycardia. 1. Syncope, while flying back from [place] to [facility]. - in the ER pt also bradycardic. - EKG shows no acute findings except for sinus bradycardia, chronic LBBB. - Troponin is negative. - The patient denies any tick bites. - Otherwise, he is very active. - Patient has idiopathic cardiomyopathy, EF of 45-50%. 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 His cardiac catheterization done in 12/2018 showed mild luminal irregularities without obstructive coronary disease. We will monitor in tele floor follow orthostatics. Echocardiogram obtained - sinus bradycardia was present during the study. There is mild concentric LVH. Septal motion is abnormal consistent with LBBB. Mild diffuse LV hypokinesis is otherwise present. LV systolic function is moderately reduced. LVEF 30 to 35%. Grade 1 diastolic dysfunction. There is no significant valvular pathology. Cardiology consulted - Given findings of nonexertional syncope, with LBBB, wide QRS, and worsening left ventricular systolic dysfunction, think it is most appropriate to consider proceeding with a cardiac resynchronization therapy capable pacemaker defibrillator at this time. Patient is agreeable. EP consulted Pt is now s/p AICD, with RA, RV, His lead. by Dr. Berger - 07/16. Continue CLIENT INTEGRATION MANAGER lisinopril. Wound check and follow up within 7-10 days per new device routine. 2. History of hypertension: Continue lisinopril. Monitor the blood pressure. 3. Hyperlipidemia: Continue statin. DISPOSITION: Plan to DC home Total Time Total Time Spent Total Time Spent (In Minutes): 35 Discharge Plan Discharge Items Patient Disposition: Home - Self-Care Reason For Visit: SYNCOPE Discharge Diagnosis: Syncope Sinus bradycardia LBBB Nonischemic cardiomyopathy Patient now status post AICD, with RA, RV, His lead Activity: As commented below Activity Comment: do not raise the left elbow over the left shoulder for 1 month Lifting: No more than 10 pounds Bathing: Keep incision dry Bathing Comment: keep dressing on & dry until wound check next week Non-emergency contact: Primary Care Provider and Seasonal Sales Associate Call non-emergency contact if: you have any medication questions and your symptoms worsen Follow-up/Referrals: Dereck Ramon DO [Primary Care Provider] - (Date & Time 07/22/2021 11:00 AM Provider Dereck Ramon DO Department Family [facility] ) Diet: Heart Healthy Addtl Attending Provider Instructions: Follow-up with your primary care doctor, the appointment was scheduled for you for July 22. You will also need to follow-up with cardiology device clinic within 7 to 10 days. You will be contacted about the appointment. There were no medication changes made during this hospital stay. Pending Studies at Discharge: No Stand-Alone Forms: [facility] [employer], Smoking Cessation Medications and DC Order Prescriptions: Continued lisinopril 2.5 mg tablet 2.5 mg PO DAILY RF: 0 simvastatin 40 mg tablet 40 mg PO QPM RF: 0 multivitamin Tablet 1 tab PO DAILY RF: 0 docusate sodium [Stool Softener] 100 mg Capsule 100 mg PO DAILY RF: 0 omega 5-dft-yqo-fish oil [Fish Oil] 1,200 (144-216) mg Capsule 1 cap PO DAILY RF: 0 Discharge Orders: Discharge Order (Routine); Ordered 07/16/21 Ordered By: Douglas Braga Admission Data Admit Date/Time: 07/13/21 06:04 Attending Provider: Douglas Braga Admit Provider: Javed Norton Primary Care Provider: Dereck Ramon Other Providers: Javed Norton ; Steve Paulson Other Interventions: Discharge Summary Assessment (RN) Last Done: 07/16/21 15:49
--- NOTE | 2021-07-30 13:42 | Operative Report (OR) ---
DATE OF PROCEDURE: 07/16/2021 PREOPERATIVE DIAGNOSES: Nonischemic cardiomyopathy, left bundle branch block, syncope, sinus bradyca rdia and chronic heart failure [place] [employer] Class II. POSTOPERATIVE DIAGNOSES: Nonischemic cardiomyopathy, left bundle branch block, syncope, sinus bradyc ardia and chronic heart failure [employer] Class II. PROCEDURE: Biventricular rate responsive implantable cardiac defibrillator under fluoroscopic guidan ce along with a peripheral venogram. SURGEON: Faviola Berger DO. PULMONARY CARE NURSE: None. ANESTHESIA: Monitored conscious sedation administered under my supervision by Tomasz Mistry. Start time 8:24, end time 9:44. Total of 3 mg of Versed and 100 mcg of fentanyl. INTRAVENOUS FLUIDS: 500 mL. ANTIBIOTICS: 2 grams of Ancef. BLOOD LOSS: 25 mL. CONTRAST: 14 mL. URINE OUTPUT: Not applicable. SPECIMENS: None. FINDINGS: See below. DRAINS: None. INDICATIONS: This is a 66-year-old gentleman who has a past medical history for nonischemic cardiomy opathy, ejection fraction in 2008 was 25%, in 03/2012, it improved to 45%-49%, but now in 2020, it is back down to 30%, sinus bradycardia, nonobstructive coronary artery disease by a remote cath, syncop e and left bundle-branch block. He was admitted to [facility] due to syncope, very suspicious for cardiac in etiology. Given his underlying sinus bradycardia, left bundle branch block , heart failure and nonischemic cardiomyopathy, he was recommended a BiV ICD prior to discharge. CONSENT: Consent was obtained prior to the patient going into the electrophysiology lab. The patien t was informed of the risks, benefits, and alternatives to the procedure. Risks include, but not soto ited to, sudden cardiac , cardiac arrhythmias, cerebrovascular accident, myocardial infarction, injury to the blood vessels, chamber of the heart and lung, bleeding and infection. The patient unde rstood these risks and agreed to the procedure as planned. Informed consent was obtained. DESCRIPTION OF PROCEDURE: The patient was brought into electrophysiology lab in a fasting state. He was connected to continuous cardiac monitoring. A time-out was performed to ensure patient identity and procedure correctly. He was prepped and draped over the left infraclavicular space in normal quevedo rgical standard fashion. Monitored conscious sedation was given throughout the procedure for patient 's comfort level. Scio precautions were maintained throughout the procedure. 10 mL of 1% lidocaine-bupivacaine mixture were given in the left deltopectoral groove. An incision w as made in the left deltopectoral groove. Blunt dissection was performed down to the pectoralis musc le. Then, a defibrillator pocket was created using blunt dissection of the pectoralis muscle within the pectoralis fascia. Then, a peripheral venogram was performed to identify the axillary vein. Truong ous axillary access was obtained on 2 needle sticks without any problems. In the more lateral stick, a 7-Bermudian sheath was inserted over the guidewire, the dilator was removed, and a second guidewire wa s inserted through the sheath to allow for retained venous access. Sheath was removed and a 9.5-Fren ch sheath was inserted over one of the guidewires through the more lateral stick. Guidewire and dila tor were removed and the right ventricular defibrillator lead was advanced into right ventricle, posi tioned in the right ventricular apex under fluoroscopic guidance. There was adequate pacing and sens ing thresholds and no diaphragmatic stimulation with high output pacing. The 9.5-Bermudian sheath was p eeled away and the lead was fixated to pectoralis muscle using 0 silk suture. Through the more medial stick, a 7-Bermudian sheath was inserted over the guidewire, the guidewire and d ilator removed. Then, the His C315 sheath was advanced over a Glidewire into the right ventricle. T he Glidewire and dilator removed and then the pacing lead was advanced through the sheath and while t he camera was in DELATORRE 10, I tried to do some mapping from the His bundle region. I could not find a clear His, but I had an idea where one was based on my A-V ratio, so I moved the camera into DELATORRE 30 a nd then marked where this was on my fluoroscopy screen, came down about 2 cm from this in a line that would extend out to the apex and kind of marked where that was on the fluoroscopy screen, so I had a n idea where I wanted to position the left bundle. I came down and then with the sheath, started pac e mapping to see in this area where I had a nice W form to pace complex in my V1. I did have to repo sition the lead couple of times just because it was not advancing much. Ultimately, I found a positio n that was decent enough and was screwing in well enough and developed somewhat of an R prime in my V 1 pacing complex. I gave contrast through the sheath to see how I was well into the septum. Then, t sophia C315 His sheath was slit under fluoroscopic guidance. I left the 7-Bermudian sheath in while I posit ioned the right atrial lead. Through the more lateral stick retained guidewire, a 7-Bermudian sheath was inserted over the guidewire without any resistance. Guidewire and dilator removed. The right atrial lead was then advanced into right atrium and positioned in the right atrial appendage under fluoroscopic guidance. There was ad equate pacing and sensing thresholds and no diaphragmatic stimulation with high output pacing. The 7 -Bermudian sheath was peeled away and the lead was fixated to pectoralis muscle using 0 silk suture. The 7-Bermudian sheath around the left bundle lead was then peeled away and the lead was fixated to pect oralis muscle using 0 silk suture. The pocket was then flushed with copious amounts of vancomycin an d saline wash and inspected for hemostasis. The leads were then attached to the generator, making quevedo re the pins were in appropriate position, passed set screws, and set screws were all tightened. The defibrillator was then placed in the antibiotic pouch followed then by being placed in the pocket, ma lubna sure the leads were lying flat beneath the device. The incision was closed in a 3-layer fashion with 2-0 Vicryl interrupted suture followed by 3-0 Vicryl interrupted suture, followed by 4-0 Monocr yl running stitch and Dermabond was applied followed by Telfa and Tegaderm dressing. EQUIPMENT: 1. The pulse generator is a [employer] COLLECTION SYSTEMS TECHNICIAN-D SureScan [id number], serial number [id number]. 2. TYRX pouch, reference [id number], lot number [id number]. 3. Right atrial lead, Medtronic 5076-52 cm, serial number [id number]. 4. Right ventricular lead, Medtronic 6935M-62 cm, serial number [id number]. 5. Left bundle lead, Medtronic 3830-69 cm, serial number [id number]. INTRAOPERATIVE TESTIN. Right atrial lead, P waves 3 millivolts, impedance 985 ohms, threshold 1 volt at 0.4 milliseconds . 2. Right ventricular lead, R waves 8.1 millivolts, impedance 575 ohms, threshold 0.4 volts at 0.4 mi lliseconds. 3. Left bundle lead, impedance 1079 ohms, threshold 0.8 volts at 0.4 milliseconds. FINAL MEASUREMENTS THROUGH THE DEVICE. 1. Right atrial lead, P waves 2 millivolts, impedance 722 ohms, threshold 1 volt at 0.4 milliseconds . 2. Right ventricular lead, R waves 13.8 millivolts, impedance 589 ohms, threshold 0.5 volts at 0.4 m illiseconds. 3. Left bundle lead, impedance 760 ohms, threshold 0.75 volts at 0.4 milliseconds. FINAL PARAMETERS: DDDR 70/130, right atrial and right ventricular amplitude 3.5 volts, pulse width 0 .4 milliseconds, sensitivity 0.3 millivolts. Left bundle lead amplitude 2 volts, pulse width 0.4 mil liseconds. A VT monitor zone at 140 beats per minute for 32 detection intervals, a VT zone at 167 be ats per minute for 16 detection intervals and a VF zone at 200 beats per minute for 30/40 detection i ntervals. IMPRESSION: Successful biventricular rate responsive implantable cardiac defibrillator under fluoros copic guidance along with peripheral venogram secondary to nonischemic cardiomyopathy, sinus bradycar kyle, left bundle-branch block, syncope and chronic heart failure with reduced ejection fraction, [employer] Class II. PLAN: Monitor the patient post-procedure. A 12-lead ECG, chest x-ray and recheck the device in a co uple of hours. He is not to lift the left elbow or left shoulder for 1 month. He cannot lift more t mendez 10 pounds with the left arm for 2 weeks. He is to keep the dressing on and dry until his wound c heck next week. He will send a remote check through his device tomorrow. Job ID: [id number]
== END 2021-07-16 16:19 | disposition home or self-care (01) | DRG 227 ==
LOC: ED 01:12 → EDINP 06:04 → 1E 06:19 → 2S 07-14 12:06
PROC: EPB.ICD (2021-07-16 08:00)